=== PATIENT | male | born 1965 | race Hispanic/Latino ===

== ENCOUNTER 2019-03-22 16:41 | Emergency (ER) | payer BC ==
--- OUTSIDE RECORDS SUMMARY | 2019-03-22 16:43 | XMS REPORT ---
:1965 Author Organization eClinicalWorks Care Team Providers Name Role Phone Yariel Vickers Provider Role Unavailable Allergies No Known Allergies Problems No Known Problems Medications No Known Medications Results No Known Results Summary Purpose eClinicalWorks Submission
--- OUTSIDE RECORDS SUMMARY | 2019-03-22 16:43 | XMS REPORT ---
:1965 Author Organization eClinicalWorks Care Team Providers Name Role Yariel Roa Provider Role Unavailable Allergies, Adverse Reactions, Alerts Substance Reaction Event Type penicillin Info Not Available Drug Allergy Problems Problem Type Condition Code Onset Dates Condition Status Assessment Pain of left hip joint M25.552 Active Assessment Trochanteric bursitis, left hip M70.62 Active Assessment Tendinitis of left hip flexor M76.892 Active Medications No Known Medications Results Name Result Date Reference Range Unit Abnormality Flag Physical/Occupational Therapy Summary Purpose eClinicalWorks Submission
[2019-03-22] MEDS ORDERED: IBUPROFEN 200 MG TAB PO ONE (17:49)
[2019-03-22] MEDS ORDERED: IBUPROFEN 400 MG TAB ONE (17:49)
[2019-03-22] MEDS ORDERED: NA CHLORIDE 0.9% 1,000 ML ONE (18:26)
[2019-03-22 18:31] LABS: Absolute Lymphocytes (CBC) 0.3 K/uL (0.7-4.9); Absolute Monocytes 0.5 K/uL (0.1-1.3); Basophils % 0.6 % (0-1.3); Eosinophils % 0.1 % (0-4.4); Lymphocytes % 3.8 % (15.3-44.8); MPV 8.8 fL (7.6-11.3); Monocytes % 5.3 % (3.3-12.3)
[2019-03-22 18:52] LABS: Potassium 3.6 mmol/L (3.5-5.1)
[2019-03-22] MEDS ORDERED: ONDANSETRON 4 MG/2 ML VIAL ONE (18:56)
--- NOTE | 2019-03-22 19:23 | EDPHYS ---
Physician Documentation [facility] Name: Len Bull Age: 53 yrs Sex: Male : 1965 Arrival Date: 03/22/2019 Time: 16:45 Bed 26 Private MD: Micky Roman ED Physician Chavez Armas HPI: 03/22 21:07 This 53 yrs old Male presents to ER via Ambulatory with complaints of kb Headache, Fever, Body aches. 21:07 The patient reports fever, that was measured at 100.7 degrees Fahrenheit, with an emergency department temperature of 101 degrees Fahrenheit. Onset: The symptoms/episode began/occurred this morning. Modifying factors: there are no obvious modifying factors. Associated signs and symptoms: Pertinent positives: arthralgias, headache, myalgias, Pertinent negatives: abdominal pain, altered mental status, backache, chest pain, chills, cough, diarrhea, pulling at ears, earache, headache, hemoptysis, nausea, night sweats, runny nose, sinus congestion, sinus drainage, skin rash, shortness of breath, sore throat, swelling, vomiting. Severity of symptoms: At their worst the symptoms were mild moderate in the emergency department the symptoms are unchanged. The patient has not experienced similar symptoms in the past. The patient has not recently seen a physician. Pt reports he wasn't feeling very well today. Had body aches and headache. Went to nurse at work to have his temp checked and it was 100.7 so he left and came here. Reports decreased appetite, body aches, headache and fever. Denies cough, abd pain, chest pain, urinary symptoms. States he passed a kidney stone last week, but it wasn't painful. Came to make sure he didn't have the flu. Historical: - Allergies: 16:58 PENICILLINS; tw2 - Home Meds: 16:58 tramadol 50 mg Oral tab 1 tab every 4-6 hours [Active]; tw2 - PMHx: 16:58 Kidney stones; tw2 - PSHx: 16:58 Kidney stents; RIGHT hand sx; right shoulder sx; right knee sx; inguinal hernia; tw2 - Immunization history:: Adult Immunizations. - Social history:: Smoking status: . - Ebola Screening: : Patient denies travel to an Ebola-affected area in the 21 days before illness onset. ROS: 21:07 ENT: Negative for injury, pain, and discharge, Neck: Negative for injury, pain, and kb swelling, Cardiovascular: Negative for chest pain, palpitations, and edema, Respiratory: Negative for shortness of breath, cough, wheezing, and pleuritic chest pain, Abdomen/GI: Negative for abdominal pain, nausea, vomiting, diarrhea, and constipation, Back: Negative for injury and pain, : Negative for injury, bleeding, discharge, and swelling, MS/Extremity: Negative for injury and deformity, Skin: Negative for injury, rash, and discoloration. 21:07 Constitutional: Positive for body aches, fatigue, fever, malaise, Negative for chills, poor PO intake, weight loss. 21:07 Neuro: Positive for headache. Exam: 21:07 Constitutional: This is a well developed, well nourished patient who is awake, alert, kb and in no acute distress. Head/Face: Normocephalic, atraumatic. Eyes: Pupils equal round and reactive to light, extra-ocular motions intact. Lids and lashes normal. Conjunctiva and sclera are non-icteric and not injected. Cornea within normal limits. Periorbital areas with no swelling, redness, or edema. ENT: Nares patent. No nasal discharge, no septal abnormalities noted. Tympanic membranes are normal and external auditory canals are clear. Oropharynx with no redness, swelling, or masses, exudates, or evidence of obstruction, uvula midline. Mucous membranes moist. Neck: Trachea midline, no thyromegaly or masses palpated, and no cervical lymphadenopathy. Supple, full range of motion without nuchal rigidity, or vertebral point tenderness. No Meningismus. Chest/axilla: Normal chest wall appearance and motion. Nontender with no deformity. No lesions are appreciated. Cardiovascular: Regular rate and rhythm with a normal S1 and S2. No gallops, murmurs, or rubs. Normal PMI, no JVD. No pulse deficits. Respiratory: Lungs have equal breath sounds bilaterally, clear to auscultation and percussion. No rales, rhonchi or wheezes noted. No increased work of breathing, no retractions or nasal flaring. Abdomen/GI: Soft, non-tender, with normal bowel sounds. No distension or tympany. No guarding or rebound. No evidence of tenderness throughout. Back: No spinal tenderness. No costovertebral tenderness. Full range of motion. Skin: Warm, dry with normal turgor. Normal color with no rashes, no lesions, and no evidence of cellulitis. MS/ Extremity: Pulses equal, no cyanosis. Neurovascular intact. Full, normal range of motion. Neuro: Awake and alert, GCS 15, oriented to person, place, time, and situation. Cranial nerves II-XII grossly intact. Motor strength 5/5 in all extremities. Sensory grossly intact. Cerebellar exam normal. Normal gait. Vital Signs: 16:58 BP 151 / 95; Pulse 119; Resp 19; Temp 101.1(O); Pulse Ox 99% on R/A; Weight 77.11 kg tw2 (R); Height 5 ft. 8 in. (172.72 cm); Pain 7/10; 19:35 BP 143 / 99; Pulse 88; Resp 14; Temp 99.8; Pulse Ox 99% ; Pain 5/10; ls4 16:58 Body Mass Index 25.85 (77.11 kg, 172.72 cm) tw2 MDM: 17:26 Patient medically screened. kb 21:10 Data reviewed: vital signs, nurses notes. Data interpreted: Pulse oximetry: on room air kb is 99 %. Interpretation: normal. Counseling: I had a detailed discussion with the patient and/or guardian regarding: the historical points, exam findings, and any diagnostic results supporting the discharge/admit diagnosis, lab results, the need for outpatient follow up, a family practitioner, to return to the emergency department if symptoms worsen or persist or if there are any questions or concerns that arise at home. 03/22 17:06 Order name: Flu; Complete Time: 17:46 snw 03/22 17:06 Order name: Strep; Complete Time: 17:46 snw 03/22 17:45 Order name: Throat Culture EDMS 03/22 18:05 Order name: CBC with Diff; Complete Time: 18:34 kb 03/22 18:05 Order name: Basic Metabolic Panel; Complete Time: 19:02 kb 03/22 18:05 Order name: [place] Screen Profile; Complete Time: 19:02 kb 03/22 17:35 Order name: Urine Dipstick-Ancillary (obtain specimen); Complete Time: 19:39 kb 03/22 18:05 Order name: IV Start; Complete Time: 18:35 kb Administered Medications: 17:40 Drug: Ibuprofen 600 mg Route: PO; rv 18:36 Follow up: Response: Temperature is decreased rv 18:35 Drug: NS 0.9% 1000 ml Route: IV; Rate: 1000 ml; Site: right antecubital; rv 18:45 Not Given (Patient Refused): Zofran 4 mg IVP once; over 2 minutes rv Disposition: 03/23 07:39 Co-signature as Attending Physician, Chavez Armas MD I agree with the assessment and lane plan of care. Disposition: 03/22/19 19:22 Discharged to Home. Impression: Fever, unspecified. - Condition is Stable. - Discharge Instructions: Fever, Adult, [id number]. - Medication Reconciliation Form, Thank You Letter, Antibiotic Education, Prescription Opioid Use form. - Follow up: Emergency Department; When: As needed; Reason: Worsening of condition. Follow up: Private Physician; When: 2 - 3 days; Reason: Recheck today's complaints, Continuance of care, Re-evaluation by your physician. Signatures: Dispatcher [employer] EDMS Maisha Yang, METAL SORTER-C METAL SORTER-Chavez Peacock MD MD cha Wise, Tara, RN RN tw2 Darvin Toro, RN RN rv Corrections: (The following items were deleted from the chart) 03/22 19:50 19:22 03/22/2019 19:22 Discharged to Home. Impression: Fever, unspecified. Condition is rv Stable. Forms are Medication Reconciliation Form, Thank You Letter, Antibiotic Education, Prescription Opioid Use. Follow up: Emergency Department; When: As needed; Reason: Worsening of condition. Follow up: Private Physician; When: 2 - 3 days; Reason: Recheck today's complaints, Continuance of care, Re-evaluation by your physician. kb
--- NOTE | 2019-03-22 19:23 | ER ---
Nurse's Notes [facility] Name: Len Bull Age: 53 yrs Sex: Male : 1965 Arrival Date: 03/22/2019 Time: 16:45 Bed 26 Private MD: Micky Roman Diagnosis: Fever, unspecified Presentation: 03/22 16:55 Presenting complaint: Patient states: i was at work didn't feel good this morning but tw2 went to work, i just feel bad all over, my joints are aching, i have some nausea and i have a headache. Transition of care: patient was not received from another setting of care. Onset of symptoms was March 22, 2019. Risk Assessment: Do you want to hurt yourself or someone else? Patient reports no desire to harm self or others. Initial Sepsis Screen: Does the patient meet any 2 criteria? No. Patient's initial sepsis screen is negative. Does the patient have a suspected source of infection? No. Patient's initial sepsis screen is negative. Care prior to arrival: None. 16:55 Method Of Arrival: Ambulatory tw2 16:55 Acuity: NIGEL 3 tw2 Triage Assessment: 16:59 Headache History: The patient has had previous headaches and this one is similar to tw2 previous episodes. General: Appears in no apparent distress. well groomed, Behavior is calm, cooperative, appropriate for age. Pain: Pain currently is 7 out of 10 on a pain scale. Pain began yesterday Also complains of nausea. Neuro: Reports headache. GI: Reports nausea. Musculoskeletal: Reports pain in low back area. Historical: - Allergies: 16:58 PENICILLINS; tw2 - Home Meds: 16:58 tramadol 50 mg Oral tab 1 tab every 4-6 hours [Active]; tw2 - PMHx: 16:58 Kidney stones; tw2 - PSHx: 16:58 Kidney stents; RIGHT hand sx; right shoulder sx; right knee sx; inguinal hernia; tw2 - Immunization history:: Adult Immunizations. - Social history:: Smoking status: . - Ebola Screening: : Patient denies travel to an Ebola-affected area in the 21 days before illness onset. Screenin:24 Abuse screen: Denies threats or abuse. Denies injuries from another. Nutritional rv screening: No deficits noted. Tuberculosis screening: No symptoms or risk factors identified. Fall Risk None identified. Assessment: 17:22 General: Appears in no apparent distress. comfortable, Behavior is calm, cooperative. rv Pain: Complains of pain in head. Neuro: Level of Consciousness is awake, alert, obeys commands, Oriented to person, place, time, situation. Neuro: Reports headache. Cardiovascular: Patient's skin is warm and dry. Respiratory: Airway is patent. GI: No signs and/or symptoms were reported involving the gastrointestinal system. : No signs and/or symptoms were reported regarding the genitourinary system. EENT: No signs and/or symptoms were reported regarding the EENT system. Derm: Skin is intact. Musculoskeletal: No signs and/or symptoms reported regarding the musculoskeletal system. Vital Signs: 16:58 BP 151 / 95; Pulse 119; Resp 19; Temp 101.1(O); Pulse Ox 99% on R/A; Weight 77.11 kg tw2 (R); Height 5 ft. 8 in. (172.72 cm); Pain 7/10; 19:35 BP 143 / 99; Pulse 88; Resp 14; Temp 99.8; Pulse Ox 99% ; Pain 5/10; ls4 16:58 Body Mass Index 25.85 (77.11 kg, 172.72 cm) tw2 ED Course: 16:45 Patient arrived in ED. mr 16:46 Micky Roman MD is Private Physician. mr 16:56 Triage completed. tw2 16:59 Arm band placed on. tw2 17:22 Darvin Toro, AYSHA is Primary Nurse. rv 17:22 Strep Sent. rv 17:22 Flu Sent. rv 17:24 Patient has correct armband on for positive identification. Bed in low position. Call rv light in reach. Side rails up X 1. Pulse ox on. NIBP on. 17:25 Maisha Yang FNP-C is [facility]. kb 17:25 Chavez Armas MD is Attending Physician. kb 19:49 No provider procedures requiring assistance completed. IV discontinued, intact, rv bleeding controlled, No redness/swelling at site. Pressure dressing applied. Administered Medications: 17:40 Drug: Ibuprofen 600 mg Route: PO; rv 18:36 Follow up: Response: Temperature is decreased rv 18:35 Drug: NS 0.9% 1000 ml Route: IV; Rate: 1000 ml; Site: right antecubital; rv 18:45 Not Given (Patient Refused): Zofran 4 mg IVP once; over 2 minutes rv Outcome: 19:22 Discharge ordered by MD. de leon 19:49 Discharged to home ambulatory. rv 19:49 Condition: good 19:49 Discharge instructions given to patient, Instructed on discharge instructions, follow up and referral plans. Demonstrated understanding of instructions, follow-up care. 19:50 Patient left the ED. rv Signatures: Maisha Yang, YAKELIN AHMADIP-Patty Stock mr Chinyere Helms, RN RN tw2 Darvin Toro, RN RN rv Mabel Gaston RN RN ls4 Corrections: (The following items were deleted from the chart) 18:45 18:36 Zofran 4 mg IVP in right antecubital rv rv
== END 2019-03-22 19:50 | disposition home or self-care (01) ==
LOC: ER 16:41
DX: R50.9 Fever, unspecified (principal); Z88.0 Allergy status to penicillin; Z87.442 Personal history of urinary calculi
CPT/HCPCS: 36415; 80048; 85025; 86308; 87070; 87081; 87804; 99283; J2405; J7030

== ENCOUNTER 2019-10-23 16:12 | Emergency (ER) | payer BC ==
--- OUTSIDE RECORDS SUMMARY | 2019-10-23 16:14 | XMS REPORT | Summary of Care ---
:1965 Author Organization [facility] Address [address] [place] [id number] Care Team Providers Name Role Phone Micky Roman MD Primary Care Provider Reason for Visit Reason Comments Cough chest congestion Encounter Details Date Type Department Care Team Description 06/15/2019 Office Visit [facility] Family Micky Roman Bronchitis ( Primary Medicine - Chriss Marte MD Dx) [address] [facility] [address], [place] [id number] [phone] Allergies Active Allergy Reactions Severity Noted Date Comments Penicillin Hives 11/23/2015 documented as of this encounter (statuses as of 06/15/2019) Medications Medication Sig Dispensed Refills Start Date End Date Status azithromycin 500 mg Take 1 tablet 3 tablet 0 06/15/2019 Active tabletIndications: by mouth Bronchitis daily. benzonatate 200 mg Take 1 30 capsule 1 06/15/2019 Active capsuleIndications: capsule by Bronchitis mouth 3 (three) times daily as needed for Cough. ATORVASTATIN 10 mg TAKE 1 TABLET 90 tablet 0 12/24/2016 06/15/2019 Discontinued tablet BY MOUTH EVERY DAY nebivolol Take 1 tablet 30 tablet 12 04/06/2017 06/15/2019 Discontinued (BYSTOLIC) 2.5 mg by mouth tabletIndications: daily. Essential hypertension DULoxetine 60 mg Take 1 30 capsule 12 06/09/2017 06/15/2019 Discontinued capsuleIndications: capsule by Anxiety and mouth daily. depression documented as of this encounter (statuses as of 06/15/2019) Active Problems Problem Noted Date Essential hypertension 11/23/2015 Hypercholesterolemia 11/23/2015 Gastroesophageal reflux disease without esophagitis 11/23/2015 documented as of this encounter (statuses as of 06/15/2019) Social History Tobacco Use Types Packs/Day Years Used Date Never Smoker Smokeless Tobacco: Never Used Alcohol Use Drinks/Week oz/Week Comments No Sex Assigned at Date Recorded Not on file Job Start Date Occupation Industry Not on file Not on file Not on file Travel History Travel Start Travel End No recent travel history available. documented as of this encounter Last Filed Vital Signs Vital Sign Reading Time Taken Comments Blood Pressure 122/79 06/15/2019 2:34 PM CDT Pulse 61 06/15/2019 2:34 PM CDT Temperature 36.3 C (97.3 F) 06/15/2019 2:34 PM CDT Respiratory Rate 16 06/15/2019 2:34 PM CDT Oxygen Saturation - - Inhaled Oxygen Concentration - - Weight 82.7 kg (182 lb 6.4 oz) 06/15/2019 2:34 PM CDT Height 172.7 cm (5' 8") 06/15/2019 2:34 PM CDT Body Mass Index 27.73 06/15/2019 2:34 PM CDT documented in this encounter Patient Instructions Patient InstructionsMicky Roman MD - 06/15/2019 2:15 PM CDTUse Robitussin DM or Mucinex DM. Drink plenty of fluids and get plenty of rest. Tylenol and/or Advil/Aleve as needed for fever or muscle aches. Wash hands frequently. documented in this encounter Progress Notes Micky Roman MD - 06/15/2019 2:15 PM CDT CC: cough Len is a 53 year old male Cough Cough characteristics: Productive Sputum characteristics: Brown Duration: 4 days Timing: Constant Progression: Worsening Associated symptoms: chills, fever, myalgias, shortness of breath and sore throat Associated symptoms: no sinus congestion and no wheezing Allergies Allergen Reactions Penicillin Hives No current outpatient medications on file. No current facility-administered medications for this visit. Past Medical History: Diagnosis Date Anxiety Cervicalgia Esophageal reflux Hyperlipidemia Hypertension Kidney stone on left side 10/2015 Past Surgical History: Procedure Laterality Date FINGER AMPUTATION Right distal 5th digit. KNEE ARTHROSCOPY Right 3 times OPEN SHOULDER ROTATOR CUFF REPAIR Right REMOVAL OF KIDNEY STONE Left 10/2015 basket extraction with stent VASECTOMY Social History Socioeconomic History Marital status: Spouse name: Not on file Number of children: Not on file Years of education: Not on file Highest education level: Not on file Occupational History Not on file Social Needs Financial resource strain: Not on file Food insecurity: Worry: Not on file Inability: Not on file Transportation needs: Medical: Not on file Non-medical: Not on file Tobacco Use Smoking status: Never Smoker Smokeless tobacco: Never Used Substance and Sexual Activity Alcohol use: No Drug use: No Sexual activity: Yes Partners: Female Lifestyle Physical activity: Days per week: Not on file Minutes per session: Not on file Stress: Not on file Relationships Social connections: Talks on phone: Not on file Gets together: Not on file Attends moravian service: Not on file Active member of club or organization: Not on file Attends meetings of clubs or organizations: Not on file Relationship status: Not on file Intimate partner violence: Fear of current or ex partner: Not on file Emotionally abused: Not on file Physically abused: Not on file Forced sexual activity: Not on file Other Topics Concern Not on file Social History Narrative [employer] Family History Problem Relation Age of Onset Anxiety Mother Hypertension Mother Hypertension Father High cholesterol Father Review of Systems Constitutional: Positive for chills and fever. HENT: Positive for sore throat. Respiratory: Positive for cough and shortness of breath. Negative for wheezing. Musculoskeletal: Positive for myalgias. BP 122/79 (BP Location: Left arm, Patient Position: Sitting, BP CUFF SIZE: Adult Large) | Pulse 61| Temp 36.3 C (97.3 F) (Tympanic) | Resp 16 | Ht 5 ' 8" (1.727 m) | Wt 182 lb 6.4 oz (82.7 kg) | BMI 27.73 kg/m Physical Exam Constitutional: He is oriented to person, place, and time. He appears well- developed and well-nourished. HENT: Head: Normocephalic and atraumatic. Eyes: Conjunctivae are normal. Neck: Normal range of motion. Neck supple. No JVD present. No tracheal deviation present. No thyromegaly present. Cardiovascular: Normal rate, regular rhythm, normal heart sounds and intact distal pulses. Exam reveals no gallop and no friction rub. No murmur heard. Pulmonary/Chest: Effort normal and breath sounds normal. No respiratory distress. He has no wheezes.He has no rales. He exhibits no tenderness. Abdominal: Soft. Bowel sounds are normal. He exhibits no distension and no mass. There is no tenderness. There is no rebound and no guarding. Musculoskeletal: Normal range of motion. He exhibits no edema or tenderness. Lymphadenopathy: He has no cervical adenopathy. Neurological: He is alert and oriented to person, place, and time. Skin: Skin is warm and dry. Diagnosis: 1. Bronchitis azithromycin 500 mg tablet benzonatate 200 mg capsule Use Robitussin DM or Mucinex DM. Drink plenty of fluids and get plenty of rest. Tylenol and/or Advil/Aleve as needed for fever or muscle aches. Wash hands frequently. Follow up: prn Patient Care Team: Micky Roman MD as PCP - General ([facility]-FAMILY MEDICINE) Plan of care, desired health behaviors, goals,& medication discussed with patient. Education resources & self management tools provided and reviewed with AVS. Patient/guardian/family verbalized understanding & agrees to plan of care. Barriers to care: None Ability to manage care: Good documented in this encounter Plan of Treatment Health Maintenance Due Date Last Done Comments DTaP,Tdap,and Td Vaccines (1 - 1986 Tdap) COLONOSCOPY 2017 Zoster Recombinant Vaccine 2017 (SHINGRIX) (1 of 2) INFLUENZA VACCINE (#1) 2019 PNEUMOCOCCAL 0-64 YEARS COMBINED Aged Out No longer eligible based on SERIES patient's age to complete this topic documented as of this encounter Results Not on filedocumented in this encounter Visit Diagnoses Diagnosis Bronchitis - Primary Bronchitis, not specified as acute or chronic documented in this encounter Insurance Payer Benefit Plan Subscriber ID Effective Dates Phone Address Type / Group BCBS OF BCBS FED [id number] 1999-Pres [phone] [address] PPO/POS [facility] ent 7 [id number] [place] [address] documented as of this encounter
--- OUTSIDE RECORDS SUMMARY | 2019-10-23 16:14 | XMS REPORT ---
:1965 Author Organization [facility] Address [address] [place] [address] Dr. Arevalo [address] [place] [address] Care Team Providers Name Role Phone Unavailable Unavailable Unavailable Problems This patient has no known problems. Allergies, Adverse Reactions, Alerts This patient has no known allergies or adverse reactions. Medications This patient has no known medications.
--- OUTSIDE RECORDS SUMMARY | 2019-10-23 16:14 | XMS REPORT | Summary of Care ---
:1965 Author Organization [facility] Address [address] [place] [address] Care Team Providers Name Role Phone Micky Roman MD Primary Care Provider Reason for Visit Reason Comments Cough chest congestion Encounter Details Date Type Department Care Team Description 06/15/2019 Office Visit [facility] Family Micky Roman Bronchitis ( Primary Medicine - Chriss Marte MD Dx) [address] [facility] [address], [place] [phone] Allergies Active Allergy Reactions Severity Noted Date [...] file Gets together: Not on file Attends congregation service: Not on file Active member of [...] Not on file 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
--- OUTSIDE RECORDS SUMMARY | 2019-10-23 16:15 | XMS REPORT | Summary of Care ---
:1965 Author Organization [facility] Address [address] [place] [address] Care Team Providers Name Role Phone Micky Roman MD Primary Care Provider Reason for Visit Reason Comments Cough chest congestion Encounter Details Date Type Department Care Team Description 06/15/2019 Office Visit [facility] Family Micky Roman Bronchitis ( Primary Medicine - Chriss Marte MD Dx) [address] [facility] [address], [place] [phone] Allergies Active Allergy Reactions Severity Noted Date [...] file Gets together: Not on file Attends evangelical service: Not on file Active member of [...] Not on file 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
[2019-10-23 16:50] LABS: Absolute Lymphocytes (CBC) 1.3 K/uL (0.7-4.9); Basophils % 0.7 % (0-1.3); Hematocrit 42.2 % (39.6-49.0); Lymphocytes % 18.9 % (15.3-44.8); MPV 8.4 fL (7.6-11.3); RBC Red Blood Cell Count 4.68 M/uL (4.33-5.43)
[2019-10-23] MEDS ORDERED: KETOROLAC 30 MG/ML INJ ONE (16:53)
[2019-10-23] MEDS ORDERED: MORPHINE 4 MG/ML SYR ONE (16:53)
[2019-10-23] MEDS ORDERED: NA CHLORIDE 0.9% 1,000 ML ONE (16:53)
[2019-10-23] MEDS ORDERED: ONDANSETRON 4 MG/2 ML VIAL ONE (16:53)
[2019-10-23 17:17] LABS: Albumin 3.8 g/dL (3.4-5.0); Bilirubin Direct 0.2 mg/dL (0-0.2); Bilirubin Total 0.9 mg/dL (0.2-1.0); Potassium 3.8 mmol/L (3.5-5.1); Protein, Total 7.1 g/dL (6.4-8.2)
[2019-10-23 17:23] LABS: Urine Bacteria <20 /HPF (NONE SEEN); Urine RBC 20-50 /HPF (NONE SEEN)
[2019-10-23 17:24] LABS: Urine Culture Reflex Order NOT NEEDED
--- NOTE | 2019-10-23 17:30 | RAD REPORT ---
EXAM DESCRIPTION: CT - Stone Protocol - 10/23/2019 5:00 pm CLINICAL HISTORY: Flank pain. left flank pain COMPARISON: Stone Protocol dated 03/10/2019 TECHNIQUE: Axial images were obtained without oral or IV contrast. Lack of contrast limits solid org an and vascular assessment. The [id number] spans the entirety of the system partially obscuring uppermost abdomen and lung bases. Coronal reformatted images were obtained and reviewed. All CT scans are performed using dose optimization technique as appropriate and may include automated exposure control or mA/KV adjustment according to patient size. FINDINGS: The lower lung castro are clear. Imaged portions of the liver and spleen show no suspicious findings on non-contrast imaging. The panc reas and adrenal glands are normal. No pathologic lymphadenopathy in the abdomen or pelvis. Several small calculi are present in the distal left ureter resulting in mild left hydronephrosis. Th e largest measures 4-5 mm (1300 HU). Additional calculi are present in the calices of both kidneys th e largest in the inferior calyx right kidney measuring 6 mm. Prominent cystic structure is seen the i nferior aspect of the left kidney measuring 4 cm and superior aspect right kidney measuring 3 cm. The se may represent cysts or caliceal diverticula. No bowel obstruction, free air, free fluid or abscess. Normal appendix noted.Small fat containing umb ilical hernia. No significant bony abnormality. IMPRESSION: Several small calculi are present inferior left ureter resulting in mild left hydronephr osis. Additional bilateral nephrolithiasis is present.
[2019-10-23] MEDS ORDERED: TAMSULOSIN 0.4 MG SR CAP ONE (18:02)
[2019-10-23] MEDS ORDERED: MAGNESIUM SULFATE 1 gm IVPB 1 GM/100 ML BAG IV ONE (18:03)
--- NOTE | 2019-10-23 18:15 | ER ---
Nurse's Notes [facility] Name: Len Bull Age: 54 yrs Sex: Male : 1965 Arrival Date: 10/23/2019 Time: 16:14 Bed 26 Private MD: Micky Roman Diagnosis: Calculus of kidney and ureter-left Presentation: 10/23 16:21 Presenting complaint: Patient states: L flank pain that radiates to the LLQ that ca1 started today. Hx of kidney stones on both kidneys. Pt c/o nausea and vomiting. Denies fever and diarrhea. Transition of care: patient was not received from another setting of care. Onset of symptoms was October 23, 2019. Risk Assessment: Do you want to hurt yourself or someone else? Patient reports no desire to harm self or others. Initial Sepsis Screen: Does the patient meet any 2 criteria? No. Patient's initial sepsis screen is negative. Does the patient have a suspected source of infection? No. Patient's initial sepsis screen is negative. Care prior to arrival: None. 16:21 Method Of Arrival: Ambulatory ca1 16:21 Acuity: NIGEL 3 ca1 Historical: - Allergies: 16:23 PENICILLINS; ca1 - Home Meds: 16:23 Bystolic 10 mg oral tab 1 tab once daily [Active]; ca1 - PMHx: 16:23 Kidney stones; Hypertension; ca1 - PSHx: 16:23 Hernia repair; Lithotripsy; ca1 - Immunization history:: Adult Immunizations up to date, Flu vaccine is up to date. - Social history:: Smoking status: Patient/guardian denies using tobacco. - Ebola Screening: : Patient negative for fever greater than or equal to 101.5 degrees Fahrenheit, and additional compatible Ebola Virus Disease symptoms Patient denies exposure to infectious person Patient denies travel to an Ebola-affected area in the 21 days before illness onset No symptoms or risks identified at this time. Screenin:21 Abuse screen: Denies threats or abuse. Denies injuries from another. Nutritional mg2 screening: No deficits noted. Tuberculosis screening: No symptoms or risk factors identified. Fall Risk IV access (20 points). Assessment: 17:00 General: Appears in no apparent distress. comfortable, Behavior is calm, cooperative. mg2 Pain: Complains of pain in abdomen Pain radiates to left mid back Pain currently is 5 out of 10 on a pain scale. Quality of pain is described as aching, Pain began gradually, this morning. Neuro: Level of Consciousness is awake, alert, obeys commands, Oriented to person, place, time, situation. Cardiovascular: Capillary refill < 3 seconds Patient's skin is warm and dry. Respiratory: Airway is patent Respiratory effort is even, unlabored, Respiratory pattern is regular, symmetrical. GI: Bowel sounds present X 4 quads. Abd is soft and non tender Reports lower abdominal pain, nausea. : Reports pain in left flank(s). EENT: No signs and/or symptoms were reported regarding the EENT system. Derm: Skin is intact, is healthy with good turgor, Skin is pink, warm \T\ dry. normal. Musculoskeletal: Circulation, motion, and sensation intact. Capillary refill < 3 seconds. 18:00 Reassessment: Patient appears in no apparent distress at this time. Patient and/or mg2 family updated on plan of care and expected duration. Pain level reassessed. Patient is alert, oriented x 3, equal unlabored respirations, skin warm/dry/pink. 18:29 Reassessment: patient for dc after completion magnesium infusion. mg2 19:19 Reassessment: Patient appears in no apparent distress at this time. Patient states mg2 feeling better. Vital Signs: 16:23 BP 168 / 98; Pulse 63; Resp 16 S; Temp 98.5(O); Pulse Ox 100% on R/A; Weight 81.65 kg ca1 (R); Height 5 ft. 7 in. (170.18 cm) (R); Pain 10/10; 17:52 BP 144 / 78; Pulse 62; Resp 18; Pulse Ox 100% on R/A; mg2 19:19 BP 157 / 88; Pulse 63; Resp 18; Temp 98; Pulse Ox 100% on R/A; Pain 0/10; mg2 16:23 Body Mass Index 28.19 (81.65 kg, 170.18 cm) ca1 ED Course: 16:14 Patient arrived in ED. mr 16:15 Micky Roman MD is Private Physician. mr 16:15 Chavez Menchaca PA is PHCP. cp 16:15 Chavez Armas MD is Attending Physician. cp 16:16 Lele Saenz RN is Primary Nurse. mg2 16:22 Triage completed. ca1 16:23 Arm band placed on right wrist. ca1 16:42 Initial lab(s) drawn, by me, sent to lab. Inserted saline lock: 20 gauge in right lt1 antecubital area, using aseptic technique. 17:01 CT completed. Patient tolerated procedure well. Patient moved back from CT. bq 17:07 CT Stone Protocol In Process Unspecified. EDMS 18:13 Mateusz Sosa MD is Referral Physician. cp 18:21 Patient has correct armband on for positive identification. mg2 18:22 No provider procedures requiring assistance completed. mg2 19:20 IV discontinued, intact, bleeding controlled, No redness/swelling at site. Pressure mg2 dressing applied. Administered Medications: 16:59 Drug: Zofran 4 mg Route: IVP; Site: right antecubital; mg2 17:53 Follow up: Response: No adverse reaction mg2 17:00 Drug: TORadol - Ketorolac 15 mg Route: IVP; Site: right antecubital; mg2 17:53 Follow up: Response: No adverse reaction mg2 17:01 Drug: NS 0.9% 1000 ml Route: IV; Rate: 1000 ml/hr; Site: right antecubital; mg2 19:22 Follow up: Response: No adverse reaction; IV Status: Completed infusion; IV Intake: mg2 1000ml 17:54 Not Given (Patient Refused): morphine 4 mg IVP once; RASS on ADMIN: Combtv4, Very mg2 Agttd3, Agttd2, Rstlss1, AlertClm0, Drwsy-1, Lt Sdtn-2, Mod Sdtn-3, Dp Sdtn-4, UnArsble-5 18:16 Drug: Magnesium Sulfate 1 grams Route: IVPB; Infused Over: 1 hrs; Site: right mg2 antecubital; 19:21 Follow up: Response: No adverse reaction; IV Status: Completed infusion; IV Intake: mg2 100ml 18:16 Drug: Flomax 0.4 mg Route: PO; mg2 19:20 Follow up: Response: No adverse reaction mg2 19:00 Drug: Mayer 10 mg-325 mg 1 tabs Route: PO; mg2 19:21 Follow up: Response: No adverse reaction; Marked relief of symptoms mg2 Intake: 19:21 IV: 100ml; Total: 100ml. mg2 19:22 IV: 1000ml; Total: 1100ml. mg2 Outcome: 18:14 Discharge ordered by . cp 19:20 Discharged to home ambulatory. mg2 19:20 Condition: stable 19:20 Discharge instructions given to patient, Instructed on discharge instructions, follow up and referral plans. medication usage, Demonstrated understanding of instructions, follow-up care, medications, Prescriptions given X 3. 19:22 Patient left the ED. mg2 Signatures: Dispatcher [employer] EDVA Patty Hodge mr NoelleThao Corey, PA PA Lele Angel RN RN mg2 Telma Patel RN RN ca1 Bertha, Neahl 1
--- NOTE | 2019-10-23 18:16 | EDPHYS ---
Physician Documentation [facility] Name: Len Bull Age: 54 yrs Sex: Male : 1965 Arrival Date: 10/23/2019 Time: 16:14 Bed 26 Private MD: Micky Roamn ED Physician Chavez Armas HPI: 10/23 16:25 This 54 yrs old Male presents to ER via Ambulatory with complaints of Possible cp Kidney Stone. 16:25 The patient complains of pain in the left mid back. The pain radiates to the left side cp abdomen and left groin and left testicle. Onset: The symptoms/episode began/occurred this morning. Associated signs and symptoms: Pertinent negatives: diarrhea, fever, pain radiating to the lower extremities, vomiting. Severity of pain: in the emergency department the pain is actually worse moderately. The patient has experienced similar episodes in the past, multiple times, with the last episode occurring last month, today's symptoms are similar, to when the patient was apparently diagnosed with kidney stone. Historical: - Allergies: 16:23 PENICILLINS; ca1 - Home Meds: 16:23 Bystolic 10 mg oral tab 1 tab once daily [Active]; ca1 - PMHx: 16:23 Kidney stones; Hypertension; ca1 - PSHx: 16:23 Hernia repair; Lithotripsy; ca1 - Immunization history:: Adult Immunizations up to date, Flu vaccine is up to date. - Social history:: Smoking status: Patient/guardian denies using tobacco. - Ebola Screening: : Patient negative for fever greater than or equal to 101.5 degrees Fahrenheit, and additional compatible Ebola Virus Disease symptoms Patient denies exposure to infectious person Patient denies travel to an Ebola-affected area in the 21 days before illness onset No symptoms or risks identified at this time. ROS: 16:30 Constitutional: Negative for body aches, chills, fever, poor PO intake. cp 16:30 Eyes: Negative for injury, pain, redness, and discharge. cp 16:30 ENT: Negative for drainage from ear(s), ear pain, sore throat, difficulty swallowing, difficulty handling secretions. 16:30 Cardiovascular: Negative for chest pain, edema. 16:30 Respiratory: Negative for cough, shortness of breath, wheezing. 16:30 Abdomen/GI: Positive for abdominal pain, of the left side abdomen, Negative for vomiting, diarrhea, constipation. 16:30 Back: Positive for flank pain, on the left. 16:30 : Negative for burning with urination. 16:30 Skin: Negative for rash. 16:30 Neuro: Negative for altered mental status, headache, weakness. 16:30 All other systems are negative. Exam: 16:40 Constitutional: The patient appears in no acute distress, alert, awake, well developed, cp well nourished, uncomfortable. 16:40 Head/Face: Normocephalic, atraumatic. cp 16:40 Eyes: Periorbital structures: appear normal, Conjunctiva: normal, no exudate, no injection, Sclera: no appreciated abnormality, Lids and lashes: appear normal, bilaterally. 16:40 ENT: External ear(s): are unremarkable, Nose: is normal, Mouth: Lips: moist, Oral mucosa: pink and intact, moist, Posterior pharynx: is normal, airway is patent, no erythema, no exudate. 16:40 Chest/axilla: Inspection: normal, Palpation: is normal, no crepitus, no tenderness. 16:40 Cardiovascular: Rate: normal, Rhythm: regular. 16:40 Respiratory: the patient does not display signs of respiratory distress, Respirations: normal, no use of accessory muscles, no retractions, no splinting, no tachypnea, labored breathing, is not present, Breath sounds: are clear throughout, no decreased breath sounds, no stridor, no wheezing. 16:40 Abdomen/GI: Inspection: abdomen appears normal, Bowel sounds: active, all quadrants, Palpation: soft, in all quadrants, mild abdominal tenderness, in the left upper quadrant and left lower quadrant, rebound tenderness, is not appreciated, voluntary guarding, is not appreciated, involuntary guarding, is not appreciated. 16:40 Back: CVA tenderness, is noted on the left. 16:40 Skin: no rash present. Vital Signs: 16:23 BP 168 / 98; Pulse 63; Resp 16 S; Temp 98.5(O); Pulse Ox 100% on R/A; Weight 81.65 kg ca1 (R); Height 5 ft. 7 in. (170.18 cm) (R); Pain 10/10; 17:52 BP 144 / 78; Pulse 62; Resp 18; Pulse Ox 100% on R/A; mg2 19:19 BP 157 / 88; Pulse 63; Resp 18; Temp 98; Pulse Ox 100% on R/A; Pain 0/10; mg2 16:23 Body Mass Index 28.19 (81.65 kg, 170.18 cm) ca1 MDM: 16:[address] 16:45 Differential diagnosis: nephrolithiasis, pyelonephritis, UTI, diverticulitis, cp pancreatitis. 18:14 Data reviewed: vital signs, nurses notes, lab test result(s), radiologic studies, CT cp scan. 18:14 Counseling: I had a detailed discussion with the patient and/or guardian regarding: the cp historical points, exam findings, and any diagnostic results supporting the discharge/admit diagnosis, lab results, radiology results, to return to the emergency department if symptoms worsen or persist or if there are any questions or concerns that arise at home. Response to treatment: the patient's symptoms have markedly improved after treatment. ED course: VSS. Pain markedly improved. Will discharge to home for continued monitoring. 10/23 16:30 Order name: Basic Metabolic Panel; Complete Time: 17:22 cp 10/23 17:41 Interpretation: Normal except: BUN 19; GFR 60. 10/23 16:30 Order name: CBC with Diff; Complete Time: 17:12 cp 10/23 16:30 Order name: Creatinine for Radiology; Complete Time: 17:12 cp 10/23 17:13 Interpretation: Normal except: GFR 58. 10/23 16:30 Order name: Hepatic Function; Complete Time: 17:22 cp 10/23 16:30 Order name: Lipase; Complete Time: 17:22 cp 10/23 16:30 Order name: Urine Microscopic Only; Complete Time: 17:25 cp 10/23 17:25 Interpretation: Normal except: URBC 20-50. 10/23 16:30 Order name: CT Stone Protocol; Complete Time: 17:38 cp 10/23 17:39 Interpretation: Report reviewed. 10/23 18:20 Order name: Urine Dipstick--Ancillary (enter results) ny 10/23 16:30 Order name: IV Saline Lock; Complete Time: 16:48 10/23 16:30 Order name: Labs collected and sent; Complete Time: 16:48 10/23 16:30 Order name: Urine Dipstick-Ancillary (obtain specimen); Complete Time: 16:47 cp Administered Medications: 16:59 Drug: Zofran 4 mg Route: IVP; Site: right antecubital; mg2 17:53 Follow up: Response: No adverse reaction mg2 17:00 Drug: TORadol - Ketorolac 15 mg Route: IVP; Site: right antecubital; mg2 17:53 Follow up: Response: No adverse reaction mg2 17:01 Drug: NS 0.9% 1000 ml Route: IV; Rate: 1000 ml/hr; Site: right antecubital; mg2 19:22 Follow up: Response: No adverse reaction; IV Status: Completed infusion; IV Intake: mg2 1000ml 17:54 Not Given (Patient Refused): morphine 4 mg IVP once; RASS on ADMIN: Combtv4, Very mg2 Agttd3, Agttd2, Rstlss1, AlertClm0, Drwsy-1, Lt Sdtn-2, Mod Sdtn-3, Dp Sdtn-4, UnArsble-5 18:16 Drug: Magnesium Sulfate 1 grams Route: IVPB; Infused Over: 1 hrs; Site: right mg2 antecubital; 19:21 Follow up: Response: No adverse reaction; IV Status: Completed infusion; IV Intake: mg2 100ml 18:16 Drug: Flomax 0.4 mg Route: PO; mg2 19:20 Follow up: Response: No adverse reaction mg2 19:00 Drug: Irving 10 mg-325 mg 1 tabs Route: PO; mg2 19:21 Follow up: Response: No adverse reaction; Marked relief of symptoms mg2 Disposition: 10/24 09:35 Co-signature as Attending Physician, Chavez Armas MD I agree with the assessment and lane plan of care. Disposition: 10/23/19 18:14 Discharged to Home. Impression: Calculus of kidney and ureter - left. - Condition is Stable. - Discharge Instructions: Kidney Stones. - Prescriptions for Zofran 4 mg Oral Tablet - take 1 tablet by ORAL route every 12 hours As needed; 20 tablet. Flomax 0.4 mg Oral Capsule, Sust. Release 24 hr - take 1 capsule by ORAL route once daily 1/2 hour following the same meal each day; 10 capsule. Ultram 50 mg Oral Tablet - take 1 tablet by ORAL route every 6 hours As needed; 20 tablet. - Medication Reconciliation Form, Thank You Letter, Antibiotic Education, Prescription Opioid Use form. - Follow up: Mateusz Sosa MD; When: 1 - 2 days; Reason: symptoms continue. - Problem is new. - Symptoms have improved. Signatures: Dispatcher [employer] EDChavez Moncada MD MD cha Page, Corey, PA PA cp Lele Saenz, RN RN mg2 Telma Patel RN RN ca1 Corrections: (The following items were deleted from the chart) 10/23 19:22 18:14 10/23/2019 18:14 Discharged to Home. Impression: Calculus of kidney and ureter - mg2 left. Condition is Stable. Prescriptions for Tylenol-Codeine #3 300-30 mg Oral Tablet - take 2 tablets by ORAL route every 6 hours As needed; 20 tablet, Zofran 4 mg Oral Tablet - take 1 tablet by ORAL route every 12 hours As needed; 20 tablet, Flomax 0.4 mg Oral Capsule, Sust. Release 24 hr - take 1 capsule by ORAL route once daily 1/2 hour following the same meal each day; 10 capsule. and Forms are Medication Reconciliation Form, Thank You Letter, Antibiotic Education, Prescription Opioid Use. Follow up: Mateusz Sosa; When: 1 - 2 days; Reason: symptoms continue. Problem is new. Symptoms have improved. cp
[2019-10-23] MEDS ORDERED: HYDROCODONE/APAP 10/325 TAB ONE (18:36)
[2019-10-23 18:45] LABS: Urine Blood 2+ (NEG); Urine Glucose NEGATIVE (NEG); Urine Protein NEGATIVE (NEG); Urine Specific Gravity 1.025 (1.005-1.030)
[2019-10-23 19:49] VITALS: O2SAT 100
[2019-10-23 19:52] VITALS: BP 157/88; TEMP 98
== END 2019-10-23 19:22 | disposition home or self-care (01) ==
LOC: ER 16:12
DX: N20.2 Calculus of kidney with calculus of ureter (principal); I10 Essential (primary) hypertension; Z87.442 Personal history of urinary calculi; Z88.0 Allergy status to penicillin
CPT/HCPCS: 96365; 96361; 85025; 80048; 36415; 80076; 83690; 76377; 74176; 96375; 99284; J3475; J7030; J2405; 81003; 81015

== ENCOUNTER 2019-11-05 05:22 | Emergency (ER) | payer BC ==
--- OUTSIDE RECORDS SUMMARY | 2019-11-05 05:26 | XMS REPORT ---
:1965 [facility] Address [address] [place] [address] Dr. Arevalo [address] [place] [id number] Care Team Providers Name Role Phone Unavailable Unavailable Unavailable Problems This patient has no known problems. Allergies, Adverse Reactions, Alerts This patient has no known allergies or adverse reactions. Medications This patient has no known medications.
[2019-11-05 06:26] LABS: Hematocrit 39.6 % (39.6-49.0); MPV 7.6 fL (7.6-11.3); RBC Red Blood Cell Count 4.36 M/uL (4.33-5.43)
[2019-11-05] MEDS ORDERED: MORPHINE 4 MG/ML SYR ONE (06:26)
[2019-11-05] MEDS ORDERED: ONDANSETRON 4 MG/2 ML VIAL ONE (06:26)
[2019-11-05 06:27] LABS: Absolute Lymphocytes (CBC) 1.1 K/uL (0.7-4.9); Basophils % 1.3 % (0-1.3)
[2019-11-05] MEDS ORDERED: NA CHLORIDE 0.9% 1,000 ML ONE (06:27)
[2019-11-05 06:51] LABS: Potassium 4.1 mmol/L (3.5-5.1)
[2019-11-05 07:39] LABS: Urine Bacteria 20-50 /HPF (NONE SEEN); Urine RBC TNTC /HPF (NONE SEEN)
--- NOTE | 2019-11-05 07:52 | ER ---
Nurse's Notes [facility] Name: Len Bull Age: 54 yrs Sex: Male : 1965 Arrival Date: 11/05/2019 Time: 05:25 Bed 20 Private MD: Diagnosis: Hematuria, unspecified Presentation: 11/05 05:32 Presenting complaint: Patient states: Hx of Kidney stone who underwent scope with stent wh placement a week ago. Last stents were removed. Pt now still C/O suprapubic pain and back pain together with blood tinged urine. Transition of care: patient was not received from another setting of care. Onset of symptoms was November 05, 2019. Risk Assessment: Do you want to hurt yourself or someone else? Patient reports no desire to harm self or others. Initial Sepsis Screen: Does the patient meet any 2 criteria? No. Patient's initial sepsis screen is negative. Does the patient have a suspected source of infection? Yes: Acute abdominal pain. Care prior to arrival: None. 05:32 Method Of Arrival: Ambulatory 05:32 Acuity: NIGEL 3 Historical: - Allergies: 05:35 PENICILLINS; - Home Meds: 05:35 Bystolic 10 mg Oral tab 1 tab once daily [Active]; - PMHx: 05:35 Hypertension; Kidney stones; - PSHx: 05:35 Hernia repair; Knee surgery; - Immunization history:: Adult Immunizations up to date. - Social history:: Patient/guardian denies using Smoking status: . - Ebola Screening: : Patient negative for fever greater than or equal to 101.5 degrees Fahrenheit, and additional compatible Ebola Virus Disease symptoms Patient denies exposure to infectious person. Screenin:38 Abuse screen: Denies threats or abuse. Denies injuries from another. Nutritional screening: No deficits noted. Tuberculosis screening: No symptoms or risk factors identified. Fall Risk None identified. Assessment: 05:39 General: Appears in no apparent distress. uncomfortable, Behavior is calm, cooperative, wh appropriate for age. Pain: Complains of pain in suprapubic area Pain radiates to lower back Pain currently is 9 out of 10 on a pain scale. Neuro: Level of Consciousness is awake, alert, obeys commands, Oriented to person, place, time, situation, Appropriate for age. Cardiovascular: Capillary refill < 3 seconds. Respiratory: Airway is patent Respiratory effort is even, unlabored, Respiratory pattern is regular, symmetrical. GI: Abdomen is flat, non-distended, Bowel sounds present X 4 quads. Abd is soft Abdomen is tender to palpation. : Reports blood tinged urine. EENT: No signs and/or symptoms were reported regarding the EENT system. Derm: Skin is intact, is healthy with good turgor, Skin is pink, warm \T\ dry. normal. Musculoskeletal: Circulation, motion, and sensation intact. 06:42 Reassessment: Patient appears in no apparent distress at this time. No changes from previously documented assessment. Patient and/or family updated on plan of care and expected duration. Pain level reassessed. Patient is alert, oriented x 3, equal unlabored respirations, skin warm/dry/pink. PVR at 35 ml notified Rafita Moreno Provider. 07:00 General: RECD REPORT FROM DIANA OLMSTEAD. 54YO HM P/W DYSURIA AND HEMATURIA, RECENT H/O RENAL bp STENT AND CHRONIC CHOLELITHIASIS. ALL CURRENT ORDERS RESULTED, CT RESULTS PENDING. 07:42 Reassessment: PROVIDER AT B/S FOR PT RE-EVAL. VS STABLE ON MONITOR. PAIN IMPROVED BUT bp STILL PRESENT. 08:23 Reassessment: PT D/C HOME AMBULATORY, DX WITH HEMATURIA. TO F/U WITH NEPHROLOGY. bp Vital Signs: 05:35 BP 157 / 106; Pulse 65; Resp 18; Temp 97.5; Pulse Ox 99% ; Weight 81.65 kg; Height 5 wh ft. 8 in. (172.72 cm); Pain 10/10; 06:45 BP 135 / 91; Pulse 52; Resp 18; Pulse Ox 100% on R/A; wh 07:00 BP 136 / 85; Pulse 52; Resp 16; Pulse Ox 100% ; bp 07:43 BP 148 / 87; Pulse 59; Resp 17; Pulse Ox 100% ; bp 08:25 BP 144 / 92; Pulse 58; Resp 16; Temp 97.5; Pulse Ox 100% ; bp 05:35 Body Mass Index 27.37 (81.65 kg, 172.72 cm) ED Course: 05:25 Patient arrived in ED. cl3 05:26 Diana Christy is Primary Nurse. 05:34 Triage completed. 05:39 Arm band placed on right wrist. 05:39 Patient has correct armband on for positive identification. Bed in low position. Call light in reach. Side rails up X 1. Pulse ox on. NIBP on. 05:46 Rafita Moreno FNP-C is PHCP. la1 05:46 Ge Ramires MD is Attending Physician. la1 05:46 Rafita Moreno FNP-C is PHCP. la1 05:46 Ge Ramires MD is Attending Physician. la1 06:10 Inserted saline lock: 20 gauge in right antecubital area, using aseptic technique. Blood collected. 06:53 CT Stone Protocol In Process Unspecified. EDMS 07:07 Primary Nurse role handed off by Diana Christy 07:07 Josias Seay, RN is Primary Nurse. bp 08:24 No provider procedures requiring assistance completed. IV discontinued, intact, bp bleeding controlled, No redness/swelling at site. Pressure dressing applied. Administered Medications: 06:37 Drug: NS 0.9% 1000 ml Route: IV; Rate: 1000 ml; Site: right antecubital; 08:25 Follow up: IV Status: Completed infusion; IV Intake: 1000ml bp 06:39 Drug: morphine 4 mg Route: IVP; Site: right antecubital; 08:26 Follow up: Response: Pain is decreased bp 06:41 Drug: Zofran 4 mg Route: IVP; Site: right antecubital; 08:26 Follow up: Response: Nausea is decreased bp Intake: 08:25 IV: 1000ml; Total: 1000ml. bp Outcome: 07:51 Discharge ordered by . la1 08:24 Discharged to home ambulatory, with family. bp 08:24 Condition: stable 08:24 Discharge instructions given to patient, Instructed on discharge instructions, follow up and referral plans. medication usage, Demonstrated understanding of instructions, follow-up care, medications, Prescriptions given X 1. 08:26 Patient left the ED. bp Signatures: Dispatcher [employer] EDMS Rafita Moreno FNP-C HOG COOLER-Cla1 Diana Christy Josias Seay, RN RN Debra Hunter cl3 Corrections: (The following items were deleted from the chart) 05:34 05:32 Initial Sepsis Screen: Does the patient meet any 2 criteria? No. Patient's initial sepsis screen is negative. Does the patient have a suspected source of infection? No. Patient's initial sepsis screen is negative.
--- NOTE | 2019-11-05 07:52 | EDPHYS ---
Physician Documentation [facility] Name: Len Bull Age: 54 yrs Sex: Male : 1965 Arrival Date: 11/05/2019 Time: 05:25 Bed 20 Private MD: ED Physician Ge Ramires HPI: 11/05 06:10 This 54 yrs old Male presents to ER via Ambulatory with complaints of Pain la1 With Urination, Blood In Urine. 06:10 The patient presents with abdominal pain right lower quadrant. Onset: The la1 symptoms/episode began/occurred 1 week(s) ago. The symptoms radiate to the right flank. Associated signs and symptoms: Pertinent positives: hematuria, Pertinent negatives: nausea, vomiting, and diarrhea, blood in stools, constipation, diarrhea, dysuria, headache. The symptoms are described as sharp. Modifying factors: The symptoms are alleviated by nothing, the symptoms are aggravated by nothing. Severity of pain: At its worst the pain was severe in the emergency department the pain has improved. The patient has experienced similar episodes in the past. Pt with recent history of kidney stones, had stent placed recently, removed 2 days ago, still having some bleeding, passing small clots, had worsening pain at home and was concerned that he is still having a fair amount of blood in his urine. Historical: - Allergies: 05:35 PENICILLINS; wh - Home Meds: 05:35 Bystolic 10 mg Oral tab 1 tab once daily [Active]; - PMHx: 05:35 Hypertension; Kidney stones; - PSHx: 05:35 Hernia repair; Knee surgery; - Immunization history:: Adult Immunizations up to date. - Social history:: Patient/guardian denies using Smoking status: . - Ebola Screening: : Patient negative for fever greater than or equal to 101.5 degrees Fahrenheit, and additional compatible Ebola Virus Disease symptoms Patient denies exposure to infectious person. ROS: 06:12 Constitutional: Negative for fever, chills, and weight loss, Eyes: Negative for injury, la1 pain, redness, and discharge, ENT: Negative for injury, pain, and discharge, Neck: Negative for injury, pain, and swelling, Cardiovascular: Negative for chest pain, palpitations, and edema, Respiratory: Negative for shortness of breath, cough, wheezing, and pleuritic chest pain. 06:12 Back: Negative for injury and pain, MS/Extremity: Negative for injury and deformity, Skin: Negative for injury, rash, and discoloration. 06:12 Abdomen/GI: Positive for abdominal pain. 06:12 : Positive for hematuria, Negative for small amounts, bladder incontinence, foul smelling urine, penile discharge. Exam: 06:13 Constitutional: This is a well developed, well nourished patient who is awake, alert, la1 and in no acute distress. Head/Face: Normocephalic, atraumatic. Eyes: Periorbital areas with no swelling, redness, or edema. ENT: Mucous membranes moist. Neck: Trachea midline Chest/axilla: Normal chest wall appearance and motion. Cardiovascular: Regular rate and rhythm with a normal S1 and S2. Respiratory: Lungs have equal breath sounds bilaterally, clear to auscultation. No increased work of breathing, no retractions or nasal flaring. Abdomen/GI: Soft, non-tender, with normal bowel sounds. No guarding or rebound. No evidence of tenderness throughout. Back: No spinal tenderness. No costovertebral tenderness. Full range of motion. MS/ Extremity: Pulses equal, no cyanosis. Vital Signs: 05:35 BP 157 / 106; Pulse 65; Resp 18; Temp 97.5; Pulse Ox 99% ; Weight 81.65 kg; Height 5 wh ft. 8 in. (172.72 cm); Pain 10/10; 06:45 BP 135 / 91; Pulse 52; Resp 18; Pulse Ox 100% on R/A; wh 07:00 BP 136 / 85; Pulse 52; Resp 16; Pulse Ox 100% ; bp 07:43 BP 148 / 87; Pulse 59; Resp 17; Pulse Ox 100% ; bp 08:25 BP 144 / 92; Pulse 58; Resp 16; Temp 97.5; Pulse Ox 100% ; bp 05:35 Body Mass Index 27.37 (81.65 kg, 172.72 cm) MDM: 05:47 Patient medically screened. la1 07:47 Data reviewed: vital signs, nurses notes, old medical records, CT, labs from previous la1 visit this month radiologic studies, I have discussed the patient's presentation/case with the attending Emergency Department Physician; and as a result, I will discharge patient. Data interpreted: Pulse oximetry: on room air is 100 %. Interpretation: normal. Counseling: I had a detailed discussion with the patient and/or guardian regarding: the historical points, exam findings, and any diagnostic results supporting the discharge/admit diagnosis, lab results, radiology results, the need for outpatient follow up, a urologist, to return to the emergency department if symptoms worsen or persist or if there are any questions or concerns that arise at home. Medication response: morphine markedly relieved the patient's pain. Symptoms have improved. Response to treatment: the patient's symptoms have markedly improved after treatment. Special discussion: Based on the history and exam findings, there is no indication for further emergent testing or inpatient evaluation. I discussed with the patient/guardian the need to see the urologist for further evaluation of the symptoms. ED course: pt able to empty bladder, PVR 34ml, pain is relieved, pt feeling better, given IVF in ED, slight elevation in CR and decrease in GFR. Pt will see his urologist on Thursday, informed of possible complications from hematuria including obstruction and possible need for catheter, no sign of infection in urine. Pt verbalizes understanding and amendable to plan. 11/05 06:01 Order name: Basic Metabolic Panel; Complete Time: 06:53 [facility] 11/05 06:01 Order name: CBC with Diff; Complete Time: 06:31 [facility] 11/05 06:01 Order name: Urine Microscopic Only [facility] 11/05 06:01 Order name: CT Stone Protocol [facility] 11/05 06:18 Order name: Urine Dipstick--Ancillary (enter results) 11/05 07:40 Order name: Urine Culture [facility] 11/05 06:01 Order name: IV Saline Lock; Complete Time: 06:20 [facility] 11/05 06:01 Order name: Labs collected and sent; Complete Time: 06:20 [facility] 11/05 06:01 Order name: Urine Dipstick-Ancillary (obtain specimen); Complete Time: 06:20 [facility] 11/05 06:01 Order name: Bladder Scanner; Complete Time: 06:42 la1 Administered Medications: 06:37 Drug: NS 0.9% 1000 ml Route: IV; Rate: 1000 ml; Site: right antecubital; wh 08:25 Follow up: IV Status: Completed infusion; IV Intake: 1000ml bp 06:39 Drug: morphine 4 mg Route: IVP; Site: right antecubital; wh 08:26 Follow up: Response: Pain is decreased bp 06:41 Drug: Zofran 4 mg Route: IVP; Site: right antecubital; 08:26 Follow up: Response: Nausea is decreased bp Disposition: 11/05/19 07:51 Discharged to Home. Impression: Hematuria, unspecified. - Condition is Stable. - Discharge Instructions: Hematuria, Adult, Kidney Stones, Kidney Stones, [id number]. - Prescriptions for Tylenol- Codeine #3 300-30 mg Oral Tablet - take 2 tablet by ORAL route every 6 hours As needed; 30 tablet. - Medication Reconciliation Form, Thank You Letter, Prescription Opioid Use form. - Follow up: Private Physician; When: 2 - 3 days; Reason: Recheck today's complaints, Continuance of care, Re-evaluation by your physician. Follow up: Emergency Department; When: As needed; Reason: Worsening of condition, unable to pass urine, worsening or severe pain. Addendum: 11/20/2019 18:59 Co-signature as Attending Physician, Ge Ramires MD. p Signatures: Dispatcher [employer] EDGe Monsivais MD MD pkl Rafita Moreno, FOXING PAINTER-C FOXING PAINTER-Cla1 Diana Christy Brian, RN RN bp Corrections: (The following items were deleted from the chart) 11/05 08:26 07:51 11/05/2019 07:51 Discharged to Home. Impression: Hematuria, unspecified. bp Condition is Stable. Forms are Medication Reconciliation Form, Thank You Letter, Antibiotic Education, Prescription Opioid Use. Follow up: Private Physician; When: 2 - 3 days; Reason: Recheck today's complaints, Continuance of care, Re-evaluation by your physician. Follow up: Emergency Department; When: As needed; Reason: Worsening of condition, unable to pass urine, worsening or severe pain. la1
[2019-11-05 07:54] LABS: Urine Blood 3+ (NEG); Urine Glucose NEGATIVE (NEG); Urine Protein 3+ (NEG); Urine Specific Gravity 1.015 (1.005-1.030); Urine pH 5.5 (5.0-7.0)
[2019-11-05 08:33] VITALS: TEMP 97.5
[2019-11-05 08:34] VITALS: O2SAT 100
[2019-11-05 08:43] VITALS: BP 144/92
--- NOTE | 2019-11-07 15:18 | RAD REPORT ---
EXAM DESCRIPTION: CT - Stone Protocol - 11/05/2019 7:35 am CLINICAL HISTORY: HEMATURIA COMPARISON: 10/23/2019 TECHNIQUE: Sequential axial images were obtained with a multi-detector helical CT without administra tion of intravenous iodinated contrast material. Oral contrast was not given. Automatic exposure co ntrol (AEC), mA and/or kV adjustment by patient size, and/or iterative reconstructive technique was u sed, per departmental dose optimization program, during the performance of the CT examination. The lack of intravenous contrast limits detailed evaluation of the abdominal organs. FINDINGS: The visualized lung bases demonstrate a calcified granuloma and minimal area of subpleural scarring in the right lower lobe. The non-contrast enhanced images of the liver, spleen, pancreas, gallbladder and adrenals are unremar kable. The kidneys are normal in appearance. Bilateral renal calculi are noted. The largest calculus is note d in the lower pole of the left kidney measuring 6 mm. Mildly dilated ureters are noted bilaterally. It appears to be slightly greater on the right. No definite evidence of ureteral or bladder calculi a re noted. Possibility of reflux versus recent passage of calculi should be considered. Mild bilateral caliectasis and dilatation of the renal pelvis are noted bilaterally. Presence of renal cysts are no jordana bilaterally. The stomach is unremarkable. The loops of small bowel are unremarkable. The colon demonstrates modera te colonic stool burden consistent with constipation. The appendix is normal. The bladder is unremarkable. There is no pelvic or abdominal lymphadenopathy. No ascites. No fr ee air. The prostate and seminal vesicles appear normal. The inguinal regions are unremarkable. The visualized bony structures are unremarkable. IMPRESSION: Bilateral renal calculi. Bilateral pelvocaliectasis and dilated ureters without demonstr able cause of obstruction. Possibility of reflux versus recent passage of calculi accounting for this appearance should be considered. Constipation. Electronically signed by: Wanda Davis MD 11/05/2019 7:27 AM SALES SERVICE PROMOTER Due to temporary technical issues with the PACS/Fluency reporting system, reports are being signed by the in house radiologist as a courtesy to ensure prompt reporting. The interpreting radiologist is f ully responsible for the content of the report.
== END 2019-11-05 08:26 | disposition home or self-care (01) ==
LOC: ER 05:22
DX: R31.9 Hematuria, unspecified (principal); I10 Essential (primary) hypertension; Z87.442 Personal history of urinary calculi; Z88.0 Allergy status to penicillin
CPT/HCPCS: 96361; 87088; 85025; 87086; 80048; 36415; 76377; 74176; 96375; 96374; 99284; J7030; J2405; 81003; 81015

== ENCOUNTER 2020-07-25 11:10 | Emergency (ER) | payer BC, OTHER ==
--- NOTE | 2020-07-25 12:17 | RAD REPORT ---
EXAM DESCRIPTION: CT - Head C Spine Mpr Wo Con - 07/25/2020 12:01 pm CLINICAL HISTORY: Head and neck injury status post fall. Head and neck pain COMPARISON: None. TECHNIQUE: Computed axial tomography of the head and cervical spine was obtained. Sagittal and coronal reconstruction was performed. All CT scans are performed using dose optimization technique as appropriate and may include automated exposure control or mA/KV adjustment according to patient size. FINDINGS: An intracranial bleed is not seen. The ventricles are normal in caliber. An extra-axial fl uid collection is not noted.Fluid within the visualized sinuses and mastoids is not seen A cervical fracture is not visualized. No dislocation is noted. IMPRESSION: No acute intracranial abnormality is seen. A cervical fracture is not visualized. If the patient continues to have symptoms to suggest intracra nial /spinal cord pathology then MRI would be recommended
--- NOTE | 2020-07-25 12:24 | RAD REPORT ---
EXAM DESCRIPTION: RAD - Abdomen Single View - 07/25/2020 12:16 pm CLINICAL HISTORY: Abdomen pain FINDINGS: Contrast is present within the kidneys, ureters and bladder The bowel gas pattern is unremarkable.
--- NOTE | 2020-07-25 12:26 | RAD REPORT ---
EXAM DESCRIPTION: CT - Thorax W/ Con - 07/25/2020 12:03 pm CLINICAL HISTORY: Chest pain status post fall COMPARISON: None TECHNIQUE: Computed axial tomography of the chest was obtained. 100 cc Isovue 300 was administered i ntravenously. All CT scans are performed using dose optimization technique as appropriate and may include automated exposure control or mA/KV adjustment according to patient size. FINDINGS: A pulmonary contusion is not present. No mediastinal hematoma. A pleural effusion is not present. A pericardial effusion is not seen. IMPRESSION: No acute traumatic injury is seen
--- NOTE | 2020-07-25 12:36 | EDPHYS ---
Physician Documentation [facility] Name: Len Bull Age: 54 yrs Sex: Male : 1965 Arrival Date: 07/25/2020 Time: 11:12 Bed 18 Private MD: Micky Roman ED Physician Markell Snyder HPI: 07/25 12:29 This 54 yrs old Male presents to ER via Ambulatory with complaints of Fall rn Injury, Neck and Upper Back Pain. 12:29 Details of fall: The patient fell from an upright position, while walking. Onset: The rn symptoms/episode began/occurred this morning. Associated injuries: The patient sustained neck injury, injury to the chest. Severity of symptoms: At their worst the symptoms were moderate, in the emergency department the symptoms are unchanged. The patient has not experienced similar symptoms in the past. Reports walking out trailer, has cinder block steps, one block rolled, he fell backward, reports hit left posterior chest and feels pain left shoulder region/ribs/neck. no LOC. No blood thinners. . Historical: - Allergies: 11:20 PENICILLINS; ca1 - Home Meds: 11:20 Bystolic 10 mg Oral tab 1 tab once daily [Active]; ca1 - PMHx: 11:20 Hypertension; Kidney stones; ca1 - PSHx: 11:20 Hernia repair; Knee surgery; ca1 - Immunization history:: Adult Immunizations up to date, Flu vaccine is not up to date. - Social history:: Smoking status: Patient denies any tobacco usage or history of. - Family history:: not pertinent. - Hospitalizations: : No recent hospitalization is reported. ROS: 12:29 Constitutional: Negative for fever, chills, and weight loss, Eyes: Negative for injury, rn pain, redness, and discharge, Neck: + neck pain Cardiovascular: Negative for palpitations, and edema, Respiratory: Negative for shortness of breath, cough, wheezing, and pleuritic chest pain, Abdomen/GI: Negative for abdominal pain, nausea, vomiting, diarrhea, and constipation, Back: Negative for injury and pain, MS/Extremity: Negative for injury and deformity, Skin: + abrasion to left posterior chest wall Neuro: Negative for headache, weakness, numbness, tingling, and seizure. Exam: 12:29 Constitutional: This is a well developed, well nourished patient who is awake, alert, rn and in no acute distress. Standing in ccollar. Head/Face: Normocephalic, atraumatic. Neck: In ccollar, no midline tenderness Chest/axilla: + moderate abrasion left posterior/lateral chest wall. Cardiovascular: Regular rate and rhythm. No pulse deficits. Respiratory: Speaking full sentences.. No increased work of breathing, no retractions or nasal flaring. Abdomen/GI: soft, non-tender Skin: Warm, dry MS/ Extremity: Pulses equal, no cyanosis. Neurovascular intact. Full, normal range of motion. Equal circumference. Neuro: Awake and alert, GCS 15, oriented to person, place, time, and situation. Cranial nerves II-XII grossly intact. Motor strength 5/5 in all extremities. Sensory grossly intact. Cerebellar exam normal. Normal gait. Vital Signs: 11:15 BP 147 / 93; Pulse 98; Resp 18 S; Temp 98(TE); Pulse Ox 99% on R/A; Weight 85.28 kg ca1 (R); Height 5 ft. 8 in. (172.72 cm) (R); Pain 9/10; 12:45 Pulse 89; Resp 15; Pulse Ox 100% ; jl7 11:15 Body Mass Index 28.59 (85.28 kg, 172.72 cm) ca1 [place] Coma Score: 11:47 Eye Response: spontaneous(4). Verbal Response: oriented(5). Motor Response: obeys jl7 commands(6). Total: 15. Trauma Score (Adult): 11:47 Eye Response: spontaneous(1); Verbal Response: oriented(1); Motor Response: obeys jl7 commands(2); Systolic BP: > 89 mm Hg(4); Respiratory Rate: 10 to 29 per min(4); [place] Score: 15; Trauma Score: 12 MDM: 11:25 Patient medically screened. rn 12:29 Differential diagnosis: contusion, fracture, sprain, strain. Data reviewed: vital rn signs, nurses notes, radiologic studies, CT scan, plain films, and as a result, I will discharge patient. Counseling: I had a detailed discussion with the patient and/or guardian regarding: the historical points, exam findings, and any diagnostic results supporting the discharge/admit diagnosis, lab results, radiology results, the need for outpatient follow up, to return to the emergency department if symptoms worsen or persist or if there are any questions or concerns that arise at home. Special discussion: I discussed with the patient/guardian in detail that at this point there is no indication for admission to the hospital. It is understood, however, that if the symptoms persist or worsen the patient needs to return immediately for re-evaluation. 07/25 12:24 Order name: CREATININE WHOLE BLOOD; Complete Time: 12:28 EDMS 07/25 11:33 Order name: CT Head C Spine; Complete Time: 12:28 rn 07/25 11:33 Order name: CT Chest W/ Con; Complete Time: 12:28 rn 07/25 11:33 Order name: XRAY Abdomen 1 View; Complete Time: 12: rn Administered Medications: No medications were administered Disposition: 07/25/20 12:35 Discharged to Home. Impression: Sprain of joints and ligaments of unspecified parts of neck, Contusion of left back wall of thorax. - Condition is Stable. - Discharge Instructions: Abrasion, Neck Contusion, Blunt Chest Trauma. - Medication Reconciliation Form, Thank You Letter, Antibiotic Education, Prescription Opioid Use, Work release form form. - Follow up: Private Physician; When: As needed; Reason: Recheck today's complaints, Re-evaluation by your physician. - Problem is new. - Symptoms have improved. Signatures: Dispatcher [employer] EDMS Markell Snyder MD MD rn Leal, Jahala, RN RN jl7 Telma Patel RN RN ca1 Corrections: (The following items were deleted from the chart) 12:57 12:35 07/25/2020 12:35 Discharged to Home. Impression: Sprain of joints and ligaments jl7 of unspecified parts of neck; Contusion of left back wall of thorax. Condition is Stable. Forms are Medication Reconciliation Form, Thank You Letter, Antibiotic Education, Prescription Opioid Use. Follow up: Private Physician; When: As needed; Reason: Recheck today's complaints, Re-evaluation by your physician. Problem is new. Symptoms have improved. rn
--- NOTE | 2020-07-25 12:36 | ER ---
Nurse's Notes [facility] Name: Len Bull Age: 54 yrs Sex: Male : 1965 Arrival Date: 07/25/2020 Time: 11:12 Bed 18 Private MD: Micky Roman Diagnosis: Sprain of joints and ligaments of unspecified parts of neck;Contusion of left back wall of thorax Presentation: 07/25 11:15 Chief complaint: Patient states: Missed a step and fell from 3 feet high, landed on L ca1 side. Reports pain on L upper back, L lower back, L shoulder, L side of neck, L arm. Abrasions on L Upper arm, L side of torso. Coronavirus screen: Client denies travel out of the [place] in the last 14 days. At this time, the client does not indicate any symptoms associated with coronavirus-19. Client reports previous positive COVID test result. Date of collection: March 2020. Ebola Screen: Patient negative for fever greater than or equal to 101.5 degrees Fahrenheit, and additional compatible Ebola Virus Disease symptoms Patient denies exposure to infectious person. Patient denies travel to an Ebola-affected area in the 21 days before illness onset. No symptoms or risks identified at this time. Initial Sepsis Screen: Does the patient meet any 2 criteria? No. Patient's initial sepsis screen is negative. Does the patient have a suspected source of infection? No. Patient's initial sepsis screen is negative. Risk Assessment: Do you want to hurt yourself or someone else? Patient reports no desire to harm self or others. Onset of symptoms was July 25, 2020. 11:15 Method Of Arrival: Ambulatory ca1 11:15 Acuity: NIGEL 4 ca1 11:49 Care prior to arrival: None. Mechanism of Injury: Fall from standing position. Trauma jl7 event details: Injury occurred in the [facility], Injury occurred: at home. Injury occurred: July 25, 2020. Trauma Activation: Not Applicable Physician: ED Physician; Name: ; Notified At: ; Arrived At: Physician: General Surgeon; Name: ; Notified At: ; Arrived At: Physician: Radiology; Name: ; Notified At: ; Arrived At: Physician: Respiratory; Name: ; Notified At: ; Arrived At: Physician: Lab; Name: ; Notified At: ; Arrived At: Historical: - Allergies: 11:20 PENICILLINS; ca1 - Home Meds: 11:20 Bystolic 10 mg Oral tab 1 tab once daily [Active]; ca1 - PMHx: 11:20 Hypertension; Kidney stones; ca1 - PSHx: 11:20 Hernia repair; Knee surgery; ca1 - Immunization history:: Adult Immunizations up to date, Flu vaccine is not up to date. - Social history:: Smoking status: Patient denies any tobacco usage or history of. - Family history:: not pertinent. - Hospitalizations: : No recent hospitalization is reported. Screenin:47 Abuse screen: Denies threats or abuse. Denies injuries from another. Tuberculosis jl7 screening: No symptoms or risk factors identified. 11:51 Nutritional screening: No deficits noted. Fall Risk Fall in past 12 months (25 points). jl7 Total Werner Fall Scale indicates Low Risk Score (25-44 pts). Fall prevention measures have been instituted. Side Rails Up X 2 Placed close to Nursing Station Frequent Obs/Assesments occuring As available Patient and Family Educated on Fall Prevention Program and strategies. Primary Survey: 11:47 NO uncontrolled hemorrhage observed. A: The patient is alert. Airway: patent. jl7 Breathing/Chest: Respiratory pattern: regular, Respiratory effort: spontaneous, unlabored, Chest inspection: symmetrical rise and fall of the chest. Circulation: Pulses: palpable right radial artery and left radial artery. Skin color: pink, Skin temperature: warm, dry. Disability Alert. Exposure/Environment: There is no evidence of uncontrolled external bleeding. Obvious injury(ies) are noted at this time: abrasions noted to left upper arm and left rib cage. Assessment: 11:49 General: Appears in no apparent distress. uncomfortable, Behavior is calm, cooperative, jl7 appropriate for age. Pain: Complains of pain in neck, back, left arm Pain currently is 9 out of 10 on a pain scale. Neuro: Level of Consciousness is awake, alert, obeys commands, Oriented to person, place, time, situation. Cardiovascular: Patient's skin is warm and dry. Respiratory: Airway is patent Respiratory effort is even, unlabored, Respiratory pattern is regular, symmetrical. Derm: Skin is pink, warm \T\ dry. Injury Description: Abrasion sustained to left subscapular area, left mid back and left tricep. 12:45 Reassessment: Patient appears in no apparent distress at this time. No changes from jl7 previously documented assessment. Patient and/or family updated on plan of care and expected duration. Pain level reassessed. Patient is alert, oriented x 3, equal unlabored respirations, skin warm/dry/pink. Vital Signs: 11:15 BP 147 / 93; Pulse 98; Resp 18 S; Temp 98(TE); Pulse Ox 99% on R/A; Weight 85.28 kg ca1 (R); Height 5 ft. 8 in. (172.72 cm) (R); Pain 9/10; 12:45 Pulse 89; Resp 15; Pulse Ox 100% ; jl7 11:15 Body Mass Index 28.59 (85.28 kg, 172.72 cm) ca1 Camilla Coma Score: 11:47 Eye Response: spontaneous(4). Verbal Response: oriented(5). Motor Response: obeys jl7 commands(6). Total: 15. Trauma Score (Adult): 11:47 Eye Response: spontaneous(1); Verbal Response: oriented(1); Motor Response: obeys jl7 commands(2); Systolic BP: > 89 mm Hg(4); Respiratory Rate: 10 to 29 per min(4); Camilla Score: 15; Trauma Score: 12 ED Course: 11:12 Patient arrived in ED. ag5 11:13 Micky Roman MD is Private Physician. ag5 11:20 Triage completed. ca1 11:20 Arm band placed on right wrist. ca1 11:23 C-collar applied. ca1 11:25 Markell Snyder MD is Attending Physician. rn 11:37 Sarah Alvarez RN is Primary Nurse. jl7 11:47 Patient has correct armband on for positive identification. Bed in low position. Call jl7 light in reach. Side rails up X 1. 11:47 Patient maintains SpO2 saturation greater than 95% on room air. Thermoregulation: pt jl7 does not want a warm blanket at this time. 12:01 CT Head C Spine In Process Unspecified. EDMS 12:01 CT Chest W/ Con In Process Unspecified. EDMS 12:17 XRAY Abdomen 1 View In Process Unspecified. EDMS 12:56 No provider procedures requiring assistance completed. IV discontinued, intact, jl7 bleeding controlled, No redness/swelling at site. Pressure dressing applied, IV inserted by CT, removed by ER. Administered Medications: No medications were administered Outcome: 12:35 Discharge ordered by . rn 12:56 Discharged to home ambulatory. mandie 12:56 Condition: stable 12:56 Discharge instructions given to patient, Instructed on discharge instructions, follow up and referral plans. Demonstrated understanding of instructions, follow-up care. 12:57 Patient left the ED. jl7 Signatures: Dispatcher [employer] EDMS Markell Snyder MD MD rn Leal, Jahala, RN RN jl7 Telma Patel RN RN ca1 Thomas Johnson 5
[2020-07-25 13:35] VITALS: BP 147/93; TEMP 98
[2020-07-25 13:40] VITALS: O2SAT 100
--- OUTSIDE RECORDS SUMMARY | 2020-07-26 20:12 | XMS REPORT | Summary of Care ---
:1965 Author Organization [facility] Address [address] [place] [id number] Care Team Providers Name Role Phone Estuardo Roman MD Primary Care Provider Reason for Visit Reason Comments Congestion Encounter Details Date Type Department Care Team Description 05/11/2020 Urgent Care [facility] Family Fadi Barillas FNP [address] [id number] Viral illness (Primary Dx); [facility] Exposure to SARS-associated coronavirus; [address] [place] [id number] Allergies Active Allergy Reactions Severity Noted Date Comments Penicillin Hives 11/23/2015 documented as of this encounter (statuses as of 05/11/2020) Medications Medication Sig Dispensed Refills Start Date End Date Status nebivolol 10 mg Take 1 tablet by 90 tablet 4 11/11/2019 Active tabletIndications: mouth daily. Essential hypertension DULoxetine 60 mg duloxetine 60 mg 0 Active capsule capsule,delayed release atorvastatin 10 mg atorvastatin 10 mg 0 Active tablet tablet etodolac 400 mg etodolac 400 mg 0 Active tablet tablet methocarbamol 500 mg methocarbamol 500 mg 0 Active tablet tablet SERTraline 50 mg sertraline 50 mg 0 Active tablet tablet traMADol 50 mg tramadol 50 mg 0 Active tablet tablet documented as of this encounter (statuses as of 05/11/2020) Active Problems Problem Noted Date Essential hypertension 11/23/2015 Hypercholesterolemia 11/23/2015 Gastroesophageal reflux disease without esophagitis documented as of this encounter (statuses as of 05/11/2020) Social History Tobacco Use Types Packs/Day Years Used Date Never Smoker Smokeless Tobacco: Never Used Alcohol Use Drinks/Week oz/Week Comments No Sex Assigned at Date Recorded Not on file Job Start Date Occupation Industry Not on file Not on file Not on file Travel History Travel Start Travel End No recent travel history available. COVID-19 Exposure Response Date Recorded In the last month, have you been in contact with Yes 05/11/2020 11:29 AM CDT someone who was confirmed or suspected to have Coronavirus / COVID-19? documented as of this encounter Last Filed Vital Signs Vital Sign Reading Time Taken Comments Blood Pressure 146/95 05/11/2020 11:35 AM CDT Pulse 73 05/11/2020 11:34 AM CDT Temperature 37.6 C (99.7 F) 05/11/2020 11:34 AM CDT Respiratory Rate 18 05/11/2020 11:34 AM CDT Oxygen Saturation 99% 05/11/2020 11:34 AM CDT Inhaled Oxygen Concentration - - Weight 80.7 kg (178 lb) 05/11/2020 11:34 AM CDT Height 172.7 cm (5' 8") 05/11/2020 11:34 AM CDT Body Mass Index 27.06 05/11/2020 11:34 AM CDT documented in this encounter Progress Notes Xiao Carrion FNP - 05/11/2020 11:20 AM CDT COVID-19 Screening Clinic: [facility] Patient Name: Len Bull Date of : 1965 54 year old Primary Care Physician: Micky Roman During this visit: Full PPE was used, mask, face shield, gown, and gloves Chief Complaint Chief Complaint Patient presents with Congestion HPI Presenting with body aches, fatigue, chills, headaches, cough and SOB for the past 2 days, patient states symptoms got severe last night. he has been taking Motrin with mild improvement. Denies any recent traveling or known sick contacts but states he was around his daughter who was +COVID but "over several weeks ago". Past Medical History / Immunizations Past Medical History: Diagnosis Date Anxiety Cervicalgia Esophageal reflux Hyperlipidemia Hypertension Kidney stone on left side 10/2015 Past Surgical History Past Surgical History: Procedure Laterality Date FINGER AMPUTATION Right distal 5th digit. KNEE ARTHROSCOPY Right 3 times OPEN SHOULDER ROTATOR CUFF REPAIR Right REMOVAL OF KIDNEY STONE Left 10/2015 basket extraction with stent VASECTOMY Allergies Allergies Allergen Reactions Penicillin Hives Review of Systems Review of Systems Constitutional: Positive for activity change, appetite change, chills and fatigue. HENT: Positive for congestion. Negative for tinnitus. Respiratory: Positive for cough and shortness of breath. Cardiovascular: Negative for chest pain and palpitations. Gastrointestinal: Negative for abdominal pain, diarrhea, nausea and vomiting. Musculoskeletal: Positive for myalgias. Negative for back pain and gait problem. Skin: Negative for rash and wound. Neurological: Positive for headaches. Negative for weakness. Psychiatric/Behavioral: Negative for agitation and confusion. The patient is not nervous/anxious. All other systems reviewed and are negative. Physical Exam BP (!) 146/95 | Pulse 73 | Temp 37.6 C (99.7 F) (Oral) | Resp 18 | Ht 5' 8" (1.727 m) | Wt 178 lb (80.7 kg) | SpO2 99% | BMI 27.06 kg/m Physical Exam Constitutional: He is oriented to person, place, and time. Vital signs are normal. He appears well-developed and well-nourished. He is active and cooperative. Non-toxic appearance. He does not have a sickly appearance. He does not appear ill. No distress. HENT: Head: Normocephalic and atraumatic. Right Ear: Hearing, tympanic membrane, external ear and ear canal normal. Left Ear: Hearing, tympanic membrane, external ear and ear canal normal. Nose: Nose normal. Right sinus exhibits no maxillary sinus tenderness and no frontal sinus tenderness. Left sinus exhibits no maxillary sinus tenderness and no frontal sinus tenderness. Mouth/Throat: Uvula is midline, oropharynx is clear and moist and mucous membranes are normal. No oropharyngeal exudate. Eyes: Pupils are equal, round, and reactive to light. Conjunctivae and EOM are normal. Right eye exhibits no discharge. Left eye exhibits no discharge. Neck: Normal range of motion. Neck supple. Cardiovascular: Normal rate, regular rhythm and normal heart sounds. Pulmonary/Chest: Effort normal and breath sounds normal. No respiratory distress. He has no wheezes.He has no rales. He exhibits no tenderness. Musculoskeletal: Normal range of motion. He exhibits no edema, tenderness or deformity. Neurological: He is alert and oriented to person, place, and time. Skin: Skin is warm and dry. No rash noted. He is not diaphoretic. No erythema. No pallor. Psychiatric: He has a normal mood and affect. His speech is normal and behavior is normal. Judgment and thought content normal. Cognition and memory are normal. Nursing note and vitals reviewed. Labs No results found for this or any previous visit (from the past 24 hour(s)). Xr Chest 2 Vw Covid Result Date: 05/11/2020 EXAM: XR CHEST 2 VW COVID HISTORY: cough, SOB COMPARISON: 09/02/2019 chest radiograph FINDINGS: The lungs are clear. No pneumothorax or pleural effusion. The cardiomediastinal silhouette is normal in size. No acute osseous abnormalities. No radiographic evidence of pulmonary infection or other acute cardiopulmonary abnormality. Preliminary Report Dictated by Resident: Rhett Carrero I, Curtis Conn MD., have reviewed this study and agree with the above report. Orders and Treatments Orders Placed This Encounter Procedures COVID-19 (PCR MOLECULAR TESTING) Outpatient Encounter Medications as of 05/11/2020 Medication Sig atorvastatin 10 mg tablet atorvastatin 10 mg tablet DULoxetine 60 mg capsule duloxetine 60 mg capsule,delayed release etodolac 400 mg tablet etodolac 400 mg tablet methocarbamol 500 mg tablet methocarbamol 500 mg tablet SERTraline 50 mg tablet sertraline 50 mg tablet traMADol 50 mg tablet tramadol 50 mg tablet nebivolol 10 mg tablet Take 1 tablet by mouth daily. No results found for this visit on 05/11/20. Diagnosis Patient well appearing, NAD noted on exam Patient speaking in complete sentences on exam. Physical exam otherwise unremarkable Vital signs WNL Len was seen today for congestion. Diagnoses and all orders for this visit: Viral illness Exposure to SARS-associated coronavirus - COVID-19 (PCR MOLECULAR TESTING); Future - COVID-19 (PCR MOLECULAR TESTING) Cough - XR CHEST 2 VW; Future Disposition & Follow Up - Discussed likely viral diagnosis and treatment plan with pt. - pt advised on frequent effective handwashing - pt advised to increase fluid intake - advised to have the pt take OTC to treat symptoms. - Pt advised to administer Tylenol as per label recommendation as needed for pain or fever - AVS and Written/handout materials appropriate to problem and teaching provided. - advised to go to the nearest Emergency Department sooner for any new, worsening, persistent, or concerning symptoms - Patient verbalized understanding of all instructions EDUCATION: Handouts given: "What to do if you are sick with COVID-19" CDC information guide reviewed with the patient and handout given to patient Education given to self quarantine until results are back. Will notify patient with results. Patient states understanding and all questions answered. Plan of care, goals and medications discussed with patient. Patient voices understanding. Barriers to care: none Ability to manage care: good This visit did not involve counseling and coordination that comprised more than 50% of the visit time. CAROLYN Matthews 05/11/2020 11:42 AM documented in this encounter Plan of Treatment Name Type Priority Associated Diagnoses Order S chedule COVID-19 (PCR MOLECULAR LAB Routine Exposure to Expe cted: 05/11/2020, TESTING) SARS-associated Expires: coronavirus Health Maintenance Due Date Last Done Comments DTaP,Tdap,and Td Vaccines (1 - 1978 Tdap) COLONOSCOPY 2017 Zoster Recombinant Vaccine 2017 (SHINGRIX) (1 of 2) INFLUENZA VACCINE (#1) 2020 Depression Screening 09/19/2020 09/19/2019 PNEUMOCOCCAL 0-64 YEARS COMBINED Aged Out No longer eligible based on SERIES patient's age to complete this topic documented as of this encounter Results Not on filedocumented in this encounter Visit Diagnoses Diagnosis Viral illness - Primary Unspecified viral infection, in conditio ns classified elsewhere and of unspecified site Exposure to SARS-associated coronavirus Cough documented in this encounter Additional Health Concerns Infection Onset Date Last Indicated Resolved Time COVID-19 Rule Out 05/11/2020 05/11/2020 documented as of this encounter Insurance Payer Benefit Plan Subscriber ID Effective Dates Phone Address Type / Group BCBS OF BCBS FED [id number] 1999-Pres [phone]POS [place] [employer] ent [id number] [place] [address] documented as of this encounter
--- OUTSIDE RECORDS SUMMARY | 2020-07-26 20:12 | XMS REPORT | Continuity of Care Document ---
:1965 Author Organization [facility] t Address [address] [place] [address] Care Team Providers Name Role Phone Micky Roman MD Attending Clinician Lupillo OLMSTEAD Attending Clinician Unavailable Sheyla LEON Attending Clinician [facility], Care Clinic Attending Clinician Unavailable Doctor Unassigned, Name Attending Clinician Unavailable Problems This patient has no known problems. Allergies, Adverse Reactions, Alerts Allergy Allergy Status Severity Reaction(s) Onset Inactive Treating Comm ents Source Name Type Date Date Clinician penicill Adverse Active Info Not [facility] in Reaction Available Ronak jeronimo [facility] ent Clinics Medications This patient has no known medications. Procedures This patient has no known procedures. Encounters Start End Encounter Admission Attending Care Care Encounter Source Date/Time Date/Time Type Type Clinicians Facility Department ID 2020-07-25 2020-07-25 Telephone [facility] [id number] 00:00:00 00:00:00 [facility] [id number] [facility] [id number] [place] [id number] [place] [address] 2020-05-14 2020-05-14 Letter [facility] [id number] 00:00:00 00:00:00 (Out) [facility] [id number] [facility] [id number] Profess[facility] [phone] [place] [address] [address] 2020-05-14 2020-05-14 [facility] [id number] 00:00:00 00:00:00 [facility] [id number] [facility] [place] [id number] [facility] [phone] [place] [address] [address] 2020-05-12 2020-05-12 Telephone Lupillo CATHY [id number] 00:00:00 00:00:00 Zaira SALCIDO [id number] [facility] [id number] 2020-05-11 2020-05-11 [facility] [id number] 12:17:00 23:59:00 Encounter Xiao Banerjee [id number] [place] [id number] [place] [id number] 2020-05-11 2020-05-11 Urgent Pob[facility], Acute [facility] [id number] 11:29:02 12:06:00 Care [facility] [id number] [place] [id number] [facility] [phone] [place] [address] [address] 2020-05-11 2020-05-11 Letter Doctor CATHY [id number] 00:00:00 00:00:00 (Out) Unassigned, LOLY [id number] [facility] [id number] 2020-05-11 2020-05-11 Telephone Pob1, Acute [facility] [id number] 00:00:00 00:00:00 Care [facility] [id number] [place] [id number] [facility] [phone] [place] [address] [address] 2019-11-16 2019-11-16 Telephone Abel [facility] [id number] 00:00:00 00:00:00 [facility] [id number] [facility] [place] [id number] [place] [phone] [place] [address] 2019-11-10 2019-11-10 Telephone BRENT Roman [id number] 00:00:00 00:00:00 [facility] [id number] [facility] [place] [id number] [place] [phone] [place] [address] 2019-11-08 2019-11-08 Orders Doctor CATHY [id number] 00:00:00 00:00:00 Only Unassigned, LOLY [id number] [facility] [id number] 2019-06-15 2019-06-15 Office BRENT Roman [id number] 14:20:08 15:02:43 Visit [facility] [id number] [facility] [place] [id number] Professio [phone] [facility] [address] 2018-09-30 2018-09-30 [facility] [id number] [facility] [address] 10:47:00 10:47:00 [facility] 2018-09-29 2018-09-29 [facility] [id number] [facility] [address] 11:48:00 11:48:00 [facility] 2018-09-28 2018-09-28 [facility] [id number] [facility] [address] 13:30:00 13:30:00 [facility] Results This patient has no known results.
--- OUTSIDE RECORDS SUMMARY | 2020-07-26 20:12 | XMS REPORT | Summary of Care ---
:1965 Author Organization [facility] Address [address] [place] [address] Care Team Providers Name Role Phone Estuardo Roman MD Primary Care Provider Encounter Details Date Type Department Care Team Description 05/11/2020 Hospital Encounter [facility] Xiao Carrion, CAROLYN Arrived [facility] [address] [place] [address] [place] [address] [phone] Allergies Active Allergy Reactions Severity Noted Date Comments Penicillin Hives 11/23/2015 documented as of this encounter (statuses as of 05/12/2020) Medications Medication Sig Dispensed Refills Start Date [...] as of this encounter (statuses as of 05/12/2020) Active Problems Problem Noted Date Essential hypertension 11/23/2015 Hypercholesterolemia 11/23/2015 Gastroesophageal reflux disease without esophagitis documented as of this encounter (statuses as of 05/12/2020) Social History Tobacco Use Types Packs/Day Years [...] of this encounter Last Filed Vital Signs Not on filedocumented in this encounter Plan of Treatment Health Maintenance Due Date Last Done Comments DTaP,Tdap,and Td Vaccines (1 - 1978 Tdap) COLONOSCOPY 2017 Zoster Recombinant Vaccine 2017 (SHINGRIX) (1 of 2) INFLUENZA VACCINE (#1) 2020 Depression Screening 09/19/2020 09/19/2019 PNEUMOCOCCAL 0-64 YEARS COMBINED Aged Out No longer eligible based on SERIES patient's age to complete this topic documented as of this encounter Procedures Procedure Name Priority Date/Time Associated Diagnosis Comme nts XR CHEST 2 VW COVID STAT 05/11/2020 12:29 PM Cough R esults for this CDT procedure are i n the results section. documented in this encounter Results XR CHEST 2 VW COVID (05/11/2020 12:29 PM CDT) Specimen Impressions Performed At PACS/VR/DOSE No radiographic evidence of pulmonary in fection or other acute cardiopulmonary abnormality. Preliminary Report Dictated by Resident: Rhett Carrero I, Curtis Conn MD., have reviewed this study and agree with the above report. Narrative Performed At EXAM: XR CHEST 2 VW COVID PACS/VR/DOSE HISTORY: cough, SOB COMPARISON: 09/02/2019 chest radiograph FINDINGS: The lungs are clear. No pneumothorax or pleural effusion. The cardiomediastinal silhouette is normal i n size. No acute osseous abnormalities. Procedure Note [facility], Radiant Results Inft User - 2019 1:18 PM CDT EXAM: XR CHEST 2 VW COVID HISTORY: cough, SOB COMPARISON: 09/02/2019 chest radiograph FINDINGS: The lungs are clear. No pneumothorax or pleural effusion. The cardiomediastinal silhouette is normal i n size. No acute osseous abnormalities. IMPRESSION No radiographic evidence of pulmonary in fection or other acute cardiopulmonary abnormality. Preliminary Report Dictated by Resident: Curtis Singh MD., have reviewed this study and agree with the above report. Performing Organization Address City/State/Zipcode Phone Number PACS/VR/DOSE documented in this encounter Visit Diagnoses Diagnosis Cough documented in this encounter Additional Health Concerns Infection Onset Date Last Indicated Resolved Time COVID-19 Rule Out 05/11/2020 05/11/2020 documented as of this encounter Insurance Payer Benefit Plan Subscriber ID Effective Dates Phone Address Type / Group BC[employer] FED [id number] 1999-Pres [phone] [address]POS [place] [employer] ent [id number] [place] [address] documented as of this encounter
--- OUTSIDE RECORDS SUMMARY | 2020-07-26 20:12 | XMS REPORT | Summary of Care ---
:1965 Author Organization [facility] Address [address] [place] [address] Care Team Providers Name Role Phone Estuardo Roman MD Primary Care Provider Encounter Details Date Type Department Care Team Description 05/11/2020 Letter (Out) [facility] Link Message s Doctor Unassigned, No [address] [facility] [place] [address] [address] [facility] [phone] [place] [address] Allergies Active Allergy Reactions Severity Noted Date Comments Penicillin Hives 11/23/2015 documented as of this encounter (statuses as of 05/11/2020) Medications Medication Sig Dispensed Refills Start Date End Date Status nebivolol 10 mg Take 1 tablet by 90 tablet 4 11/11/2019 Active tabletIndications: mouth daily. Essential hypertension documented as of this encounter (statuses as [...] Results Not on filedocumented in this encounter Insurance Payer Benefit Plan Subscriber ID Effective Dates Phone Address Type / Group BCBS OF BCBS FED [id number] 1997-[facility] [phone]/POS [facility] ent 7 [id number] [place] [address] documented as of this encounter
--- OUTSIDE RECORDS SUMMARY | 2020-07-26 20:13 | XMS REPORT | Summary of Care ---
:1965 Author Organization [facility] Address [address] [place] [address] Care Team Providers Name Role Phone Estuardo Roman MD Primary Care Provider Reason for Visit Reason Comments Results COVID Encounter Details Date Type Department Care Team Description 05/12/2020 Telephone [facility] Zaira Wesley RN Results (COVID) [address] [phone] [place] [address] Allergies Active Allergy Reactions Severity Noted Date [...] methocarbamol 500 mg 0 Active tablet tablet SERTtjine 50 mg serttjine 50 mg 0 Active tablet tablet traMADol [...] Results Not on filedocumented in this encounter Additional Health Concerns Infection Onset Date Last Indicated Resolved Time COVID-19 Rule Out 05/11/2020 05/11/2020 05/12/2020 4: 43 PM CDT COVID-19 Confirmed 05/11/2020 05/11/2020 documented as of this encounter Insurance Payer Benefit Plan Subscriber ID Effective Dates Phone Address Type / Group BCBS OF BC[employer] FED [id number] 1999-Pres [phone] [address]/POS [place] [employer] ent [id number] [place] [address] documented as of this encounter
--- OUTSIDE RECORDS SUMMARY | 2020-07-26 20:13 | XMS REPORT | Summary of Care ---
:1965 Author Organization [facility] Address [address] [place] [address] Care Team Providers Name Role Phone Estuardo Roman MD Primary Care Provider Reason for Visit Reason Comments Results Encounter Details Date Type Department Care Team Description 05/14/2020 Telephone [facility] Micky Helms MD Results - [address] [place] [address] [place] [address] [phone] Allergies Active Allergy Reactions Severity Noted Date Comments Penicillin Hives 11/23/2015 documented as of this encounter (statuses as of 05/15/2020) Medications Medication Sig Dispensed Refills Start Date [...] as of this encounter (statuses as of 05/15/2020) Active Problems Problem Noted Date Essential hypertension 11/23/2015 Hypercholesterolemia 11/23/2015 Gastroesophageal reflux disease without esophagitis documented as of this encounter (statuses as of 05/15/2020) Social History Tobacco Use Types Packs/Day Years [...] Onset Date Last Indicated Resolved Time COVID-19 Confirmed 05/11/2020 05/11/2020 documented as of this encounter Insurance Payer Benefit Plan Subscriber ID Effective Dates Phone Address Type / Group BC[employer] FED [id number] 1999-Pres [phone] [address]/POS [place] [employer] ent 7 [id number] [place] [address] documented as of this encounter
--- OUTSIDE RECORDS SUMMARY | 2020-07-26 20:13 | XMS REPORT | Summary of Care ---
:1965 Author Organization [facility] Address [address] [place] [address] Care Team Providers Name Role Phone Estuardo Roman MD Primary Care Provider Reason for Visit Reason Comments Notification Encounter Details Date Type Department Care Team Description 05/11/2020 Telephone [facility] P[facility], Acute [facility] Notification - [address] [place] [address] Allergies Active Allergy Reactions Severity Noted Date Comments Penicillin Hives 11/23/2015 documented as of this encounter (statuses as of 05/14/2020) Medications Medication Sig Dispensed Refills Start Date [...] as of this encounter (statuses as of 05/14/2020) Active Problems Problem Noted Date Essential hypertension 11/23/2015 Hypercholesterolemia 11/23/2015 Gastroesophageal reflux disease without esophagitis documented as of this encounter (statuses as of 05/14/2020) Social History Tobacco Use Types Packs/Day Years [...] Type / Group BC[employer] FED [id number] 1997-Pres [phone] [address] O/POS [place] [employer] ent 7 [id number] [place] [address] documented as of this encounter
--- OUTSIDE RECORDS SUMMARY | 2020-07-26 20:13 | XMS REPORT | Summary of Care ---
:1965 Author Organization [facility] Address [address] [place] [address] Care Team Providers Name Role Phone Estuardo Roman MD Primary Care Provider Encounter Details Date Type Department Care Team Description 05/14/2020 Letter (Out) [facility] M[facility] - Chriss NUNEZ [address] [place] [address] Dr [address] [place] [address] [place] [address] [address] [phone] Allergies Active Allergy Reactions Severity Noted Date [...] Type / Group BCBS [employer] FED [id number] 1997-Pres [phone] [address]/POS [place] [employer] ent [address] [id number] [place] [address] documented as of this encounter
== END 2020-07-25 12:57 | disposition home or self-care (01) ==
LOC: ER 11:10
DX: S13.9XXA Sprain of joints and ligaments of unspecified parts of neck, initial encounter (principal); S20.222A Contusion of left back wall of thorax, initial encounter; W10.8XXA Fall (on) (from) other stairs and steps, initial encounter; Y93.01 Activity, walking, marching and hiking; Y92.89 Other specified places as the place of occurrence of the external cause; I10 Essential (primary) hypertension; Z88.0 Allergy status to penicillin
CPT/HCPCS: 82565; 70450; 72125; 71260; 74018; 99284; Q9967